=== PATIENT | male | born 1950 | race Caucasian/White ===

== ENCOUNTER 2023-06-24 20:28 | Inpatient (IN) ==
[2023-06-24] MEDS ORDERED: HEPARIN SODIUM IN D5W 25,000 UNITS/500 ML BAG IV PRN (22:43)
[2023-06-24] MEDS ORDERED: HEPARIN SODIUM INJ 5000 UNITS IVP ONE (22:45)
[2023-06-24] MEDS ORDERED: NovoLIN R (or HumuLIN R) SUBCUT PRN (22:55)
[2023-06-25] MEDS ORDERED: OMNIPAQUE 350 mg/mL 50 mL BTL 50 ML ONE (03:12)
[2023-06-25] MEDS ORDERED: OMNIPAQUE 350 mg/mL 100 mL BTL 100 ML ONE (03:12)
--- NOTE | 2023-06-25 03:52 | DR.H&P ---
H&P History & Physical for Day of: H&P Date: 06/24/23 Chief Complaint Chief Complaint: Acute pain of right foot with gangrene of the right great toe and right secomd toe Allergies Allergies Allergy/AdvReac Type Severity Reaction Status Date / Time No Known Allergies Allergy Verified 06/24/23 22:28 History of Present Illness History of Present Illness: 73 year old male with history of severed of several days of changing color of the right foot with evidence of gangrenous changes of the right great toe and second toe with pallor of the right foot. This is new. Past medical history significant for diabetes, coronary heart disease s/p post coronary artery bypass grafting in the 1960s. Also with history of cerebrovascular accident with the main sequelae of some memory loss but no obvious physical impairment Past Medical History Past Medical History: Coronary Artery Disease, CVA, Diabetes, Dyslipidemia and H ypertension Past Surgical History Surgical History: CABG/Valve Surgery and Other Social History Does patient currently use any type of tobacco product: No Have you used tobacco products in the last 12 months: No Type of Tobacco Use: None Does any household member use tobacco: No Alcohol Use: None Drug Use: None Medications Home Medications: Home Medications Medication Instructions Recorded Confirmed Type amlodipine 5 mg tablet 5 mg PO QDAY 06/24/23 06/24/23 History atorvastatin 40 mg tablet 40 mg PO QHS 06/24/23 06/24/23 History mwrpxaltqk-ugwdyjelheqwh-wimbppjy 1 cap PO Q8H PRN Headache 06/24/23 06/24/23 History 50 mg-300 mg-40 mg capsule (Fioricet) clopidogrel 75 mg tablet 75 mg PO QDAY 06/24/23 06/24/23 History lisinopril 40 mg tablet 40 mg PO QDAY 06/24/23 06/24/23 History metformin 1,000 mg tablet 1,000 mg PO BIDWMEAL 06/24/23 06/24/23 History vit C 250 mg-vit E 90 mg-zinc 40 1 tab PO BID 06/24/23 06/24/23 History mg-copper 1 xt-gjafwa-lnrsar capsule (PreserVision AREDS-2) Labs Labs: labs done in [facility] WBC=10.2, Hgb=11.9,BDSR=785B, BMP WNL WITH CREATININE= 1.1 Review of Systems Constitutional: See HPI and Other (Mild memory loss ) Eyes: No Symptoms Reported ENT: No Symptoms Reported Respiratory: No Symptoms Reported Cardiovascular: No Symptoms Reported and See HPI Gastrointestinal: No Symptoms Reported Genitourinary: No Symptoms Reported Musculoskeletal: See HPI Skin: See HPI Neurological: See HPI and Confusion (Mild) Physical Exam Vital Signs: Vital Signs Temperature 99.5 F Temperature 98.2 F Pulse Rate 70 Pulse Rate 71 Pulse Rate 72 Pulse Rate 85 Respiratory Rate 25 Respiratory Rate 25 Respiratory Rate 17 Respiratory Rate 22 Blood Pressure 160/72 Blood Pressure 169/74 Blood Pressure 127/62 Blood Pressure 155/79 O2 Sat by Pulse Oximetry 97 O2 Sat by Pulse Oximetry 99 Oriented: Normal, Time, Person, Place and Other (patient confused by his past medical history. His family fills in the blanks ) Eyes: Normal Ear: Normal Nose: Normal Throat: Normal Respiratory: Clear Throughout Cardiovascular: Normal (normal cardiac exam. Healed median sternotomy, palpable femoral pulses bilaterally. Absent dorsalis pedis and posterior tibial pulses bilaterally with significant changes of the right foot with ecchymosis, early gangrene of the right great toe and second toe ) : Normal Auscultation: Bowel Sounds: Normal Palpation: Other (reducible small umbilical hernia ) Tenderness: Normal Skin: Other (normal except for right foot as noted above ) Psychiatric: Normal Mood Description: Calm Affect: Normal Speech Pattern: Clear Assessment/Plan (1) Atherosclerosis of [place] arteries of extremities with rest pain, right leg: Status: Acute Plan: patient will be placed on a Heparin drip and obtain CT angiogram. Patient will require urgent intervention tomorrow. High risk of loss of the great toe and possibly the second toe as well of the right foot. (2) Atherosclerosis of [place] arteries of extremities with rest pain, left leg: Status: Acute Plan: Patient also with probable significant arterial disease of the left leg .See above (3) Type 2 diabetes mellitus without complications: Status: Acute Plan: sliding scale insulin for now (4) Essential (primary) hypertension: Status: Acute Plan: home medications (5) Chronic ischemic heart disease, unspecified: Status: Acute Plan: stable. Will obtain EKGs. (6) History of CVA (cerebrovascular accident): Status: Acute Plan: Monitor. Will hold Plavix for now
[2023-06-25] MEDS ORDERED: DILAUDID INJ IVP PRN (03:53)
[2023-06-25] MEDS ORDERED: HIBICLENS WASH EXT ONE (04:11)
--- NOTE | 2023-06-25 04:37 | EKG ---
Test Reason : Surgery protocol Blood Pressure : */* mmHG Vent. Rate : 72 BPM Atrial Rate : 72 BPM P-R Int : 238 ms QRS Dur : 124 ms QT Int : 420 ms P-R-T Axes : 16 -89 -16 degrees QTc Int : 459 ms Sinus rhythm with 1st degree AV block Left axis deviation Right bundle branch block Inferior infarct , age undetermined Abnormal ECG No previous ECGs available Confirmed by Mike Flores ([id number]) on 06/27/2023 9:17:01 AM Referred By: Confirmed By: Mike Flores
[2023-06-25] MEDS ORDERED: HEPARIN SODIUM INJ 5000 UNITS IVP ONE (05:27)
--- NOTE | 2023-06-25 07:03 | RAD ---
EXAM:CHEST, 1 VIEWHISTORY:pre op;COMPARISON:No relevant prior studies were available at the time of interpretation.TECHNIQUE:CHEST, 1 VIEWFINDINGS:Chest:Lines and tubes: Cardiac leads overlie the chest.Mediastinum: Median sternotomy wires are present. Cardiac shadow is normal in size.Pulmonary vessels: No pulmonary vascular congestion.Lung [place]: No suspicious airspace opacity.Pleura: No effusion. No pneumothorax.Bones and soft tissues: No acute osseous or soft tissue abnormality.IMPRESSION:1. No acute cardiopulmonary abnormalityTHIS IS AN ELECTRONICALLY VERIFIED FINAL REPORT06/25/2023 6:59 AM - Electronically signed by Robbie Hines MD
--- NOTE | 2023-06-25 07:34 | NOTE.SOAP ---
Soap Note Note for Day of Date of Exam: 06/25/23 Subjective Data Subjective Data: 73M with a history of DM notes a painful right foot that developped discoloration 2 weeks ago after a trip and fall. He feels fine in his other foot and only experiences mild pain due to neuropathy. He states he has never seen a vascular doctor in the past. He was recommended to go to the emergency room yesterday to be worked up further for intervention. Denies any constitutional symptoms at this time Objective Data Objective Data: Dry gangrenous changes primarily to the hallux and as well as patches on his lesser digits of his right foot. Blue and black color changes to the skin. No open wounds, crepitus or purulence noted. Non palpable pulses. Diminished protective and epicritic sensation. The foot is cold to touch. Assessment Assessment: Critical limb ischemic, RLE PAD DM with neuropathy Plan Plan: Patient seen bedside, discussed plan at this time will be treating patient conservatively and he can follow up in the office once he completes his vascular intervention with Dr. Canseco. I recommend painting the toes with betadine to keep dry and prevent from getting wet. Patient is at risk of amputation, pending recs from vascular. At this time, podiatry is signing off, please have patient follow up in Dr. Boucher's office once discharged./
[2023-06-25 08:32] LABS: BASOPHILS % (AUTO) 0.2 % (0.2-1.0); EOSINOPHILS % (AUTO) 0.4 % (0.9-2.9); HEMOGLOBIN 10.9 g/dL (13.5-18.0); LYMPHOCYTES # (AUTO) 1.6 X10^3/uL (1.3-2.9); LYMPHOCYTES % (AUTO) 20.1 % (21.0-51.0); MEAN CORPUSCULAR HEMOGLOBIN 29.1 pg (27.0-34.0); MEAN CORPUSCULAR HGB CONC 33.1 g/dL (33.0-35.0); MEAN CORPUSCULAR VOLUME 87.8 fL (80.0-100.0); MEAN PLATELET VOLUME 10.5 fL (7.4-11.0); MONOCYTES # (AUTO) 0.5 x10^3/uL (0.3-0.8); MONOCYTES % (AUTO) 6.3 % (0.0-13.0); NEUTROPHILS # (AUTO) 5.6 x10^3/uL (2.2-4.8); PLATELET COUNT 188 X10^3/uL (150.0-450.0); RED BLOOD COUNT 3.76 X10^6/uL (4.7-6.0); RED CELL DISTRIBUTION WIDTH 14.6 % (11.6-16.5); WHITE BLOOD COUNT 7.7 X10^3/uL (3.6-10.0)
[2023-06-25 08:40] LABS: ALANINE AMINOTRANSFERASE 16 Units/L (12-78); ALBUMIN 2.5 g/dL (3.4-5.0); ALKALINE PHOSPHATASE 100 Units/L (46-116); ASPARTATE AMINO TRANSFERASE 19 Units/L (15-37); BLOOD UREA NITROGEN 16 mg/dL (7-18); CALCIUM 8.5 mg/dL (8.5-10.1); CARBON DIOXIDE 24.1 mmol/L (21-32); CHLORIDE 100 mmol/L (98-107); COR CA(FOR HYPOALB) 9.7 mg/dL (8.5-10.1); COR NA(FOR HYPERGLY) 134 mmol/L (136-145); CREATININE 0.88 mg/dL (0.70-1.30); GLUCOSE 122 mg/dL (65-99); POTASSIUM 3.7 mmol/L (3.5-5.1); SODIUM 133 mmol/L (136-145); TOTAL PROTEIN 6.9 g/dL (6.4-8.2); eGFR NON BLACK RACES > 60 (>60)
[2023-06-25 09:00] LABS: ANISOCYTOSIS 1+; PLATELET MORPHOLOGY COMMENT NORMAL (NORMAL)
--- NOTE | 2023-06-25 09:24 | CT ---
EXAM:CTA AORTA WITH RUNOFFHISTORY:Right lower extremity ischemia;COMPARISON:NoneTECHNIQUE:Multip le CT axial images of the abdomen pelvis and lower extremity runoff were obtained before and after using IV contrast. 3D reconstructions utilizing axial MIPS imaging was performed and reviewed. Dose reduction techniques including Automated Exposure Control (AEC) and adjustment of mA and kV were utilized.Stenoses are measured using NASCET criteria.FINDINGS:Without contrast: Atherosclerotic calcification is present in the coronary arteries, aorta, and major arterial branches. Right hip prosthesis is noted.With contrast: The aorta has a normal caliber with no aneurysm, dissection, or stenosis. All 3 mesenteric vessels are patent. There are 2 patent arteries to the right kidney and 1 to the left.Common iliac and external iliac arteries are patent. Both internal iliac arteries are patent.Right lower extremity: Moderate plaque disease is noted in the common femoral artery without significant stenosis. There is also a mild stenosis at the adductor canal segment. Otherwise femoropopliteal artery is patent to the infrarenal segment. Distal popliteal artery is occluded. The occluded length is short-segment measuring 15 mm. The reconstituted popliteal artery is small but continues as a peroneal artery which extends into the foot. Posterior tibial artery is patent initially but has severe disease and multifocal occlusions. There are segmental areas of reconstitution of the anterior tibial artery but this is mostly occluded.Left lower extremity: Mild diffuse disease seen in the femoropopliteal artery. The only continuous vessel to the foot is the posterior tibial artery but this has diffuse moderate disease. Anterior tibial artery is occluded in the proximal calf and is never reconstituted. Peroneal artery is occluded in the proximal calf and is never reconstituted.Body: There is no biliary dilatation. The gallbladder has no inflammation around it. No hydronephrosis. No bowel obstruction.IMPRESSION:1. Short-segment occlusion of the distal right popliteal artery2. Single-vessel runoff to the right foot3. Single-vessel runoff to the left footTHIS IS AN ELECTRONICALLY VERIFIED FINAL REPORT06/25/2023 9:21 AM - Electronically signed by Pritesh Camacho MD
[2023-06-25] MEDS: NORVASC TAB 5 MG PO SCH (09:30)
[2023-06-25] MEDS: ZESTRIL TAB 40 MG PO SCH (09:30)
[2023-06-25] MEDS: LIPITOR TAB 40 MG PO SCH (09:30)
--- NOTE | 2023-06-25 10:32 | NOTE.SOAP ---
Soap Note Note for Day of Date of Exam: 06/25/23 Subjective Data Subjective Data: Patient did well last night on Heparin drip. CT angiogram obtained showing complete occlusion of the right popliteal artery over A short segment with diseased right runoff vessels of the anterior tibial and posteriolr tibial arteries the right foot. Objective Data Pulse Rate: 74 Respiratory Rate: 30 Blood Pressure: 135/64 O2 Sat by Pulse Oximetry: 93 Objective Data: Oxygen saturation is on room air. Complete occlusion of the right poplteal arteries with severe disease of the right AT and Assessment Assessment: Limb threatening ischemia of the right foot with total popliteal occlusion. Plan Plan: Aortogram . Ahterctomy and probable drug-coated balloon angioplasty of the left poplitaeal occlusion. Probably angioplasty of the runoff vessels. Risk and benefits have been described to the patient and he agtrees to proceed.
[2023-06-25] MEDS: ZOSYN VIAL 3.375 GRAMS 3.375 G in NS 100 ML IV 100 ML IV SCH ×3 (11:33→22:40)
[2023-06-25] MEDS ORDERED: NS 1,000 ML IV 1,000 ML ONE (12:02)
[2023-06-25] MEDS ORDERED: HEPARIN SODIUM INJ 5000 UNITS ONE (12:28)
[2023-06-25] MEDS ORDERED: DIPRIVAN VIAL 40 ML ONE (12:28)
[2023-06-25] MEDS ORDERED: ZOFRAN INJ 4 MG VIAL ONE (12:29)
[2023-06-25] MEDS ORDERED: KETAMINE HCL ONE ×2 (12:29→12:31)
[2023-06-25] MEDS ORDERED: PEPCID 20 MG VIAL ONE (12:29)
[2023-06-25] MEDS ORDERED: VERSED ONE (12:32)
[2023-06-25] MEDS ORDERED: FENTANYL VIAL INJ 100 mcg ONE (12:32)
[2023-06-25] MEDS ORDERED: MARCAINE 0.5% ONE (12:47)
[2023-06-25] MEDS ORDERED: HEPARIN SODIUM IN D5W 75,000 UNITS/1,500 ML BAG ONE (12:48)
[2023-06-25] MEDS ORDERED: VISIPAQUE 100 ML ONE (13:09)
[2023-06-25] MEDS ORDERED: NEO-SYNEPHRINE INJ ONE (13:15)
[2023-06-25] MEDS ORDERED: NS 500 ML IV 500 ML IV ONE (13:37)
--- NOTE | 2023-06-25 14:39 | OR.IMMED ---
IMMEDIATE POST-OP NOTE Immediate Post-Op Note Date of surgery/procedure: 06/25/23 Pre-Op Diagnosis: limb threatening ischemia right foot Post-Op Diagnosis: same Procedure: Aortogram ,arteriogram right leg, atherectomy and balloon angioplasty right posterior tibial artery and tibioperoneal trunk occlusion, athjerectomy and drug coated balloon angioplasty right popliteal artery occlusion, atherectomy and drug-coated balloon angioplasty severe stenosis right superficial femoral artery mid portion . Description of Procedure: see dictation Surgeon/Tactical Intelligence Officer: Ajith Findings: short segment complete occlusion of the right popliteal artery just above the knee, occlusion of the right tibial peroneal trunk, occlusion of the proximal right posterior tibial artery with good flow lisa the foot and collateral flow. Anterior tibial artery never visualized . Peroneal artery markedly disease and ends in the distal calf. Estimated Blood Loss: < 100 cc Complications: none Progress Notes: patient to return to the ICU. Will discontinue the Heparin drip. Begin Xarelto and aspirin. Probably discharge home tomorrow on Xarelto, aspirin, and po antibiotics s and see in follow up next week. May still lose the right great toe in the future.
[2023-06-25] MEDS ORDERED: SNACK - Diabetic Appropriate PO SCH (20:00)
[2023-06-26] MEDS: ZOSYN VIAL 3.375 GRAMS 3.375 G in NS 100 ML IV 100 ML IV SCH (05:02)
[2023-06-26 05:22] LABS: BASOPHILS % (AUTO) 0.1 % (0.2-1.0); EOSINOPHILS % (AUTO) 0.4 % (0.9-2.9); HEMOGLOBIN 10.6 g/dL (13.5-18.0); LYMPHOCYTES # (AUTO) 0.9 X10^3/uL (1.3-2.9); LYMPHOCYTES % (AUTO) 14.1 % (21.0-51.0); MEAN CORPUSCULAR HGB CONC 33.1 g/dL (33.0-35.0); MEAN CORPUSCULAR VOLUME 87.6 fL (80.0-100.0); MEAN PLATELET VOLUME 10.1 fL (7.4-11.0); MONOCYTES # (AUTO) 0.5 x10^3/uL (0.3-0.8); MONOCYTES % (AUTO) 8.1 % (0.0-13.0); NEUTROPHILS # (AUTO) 5.2 x10^3/uL (2.2-4.8); NEUTROPHILS % (AUTO) 77.3 % (42.0-75.0); PLATELET COUNT 189 X10^3/uL (150.0-450.0); RED BLOOD COUNT 3.66 X10^6/uL (4.7-6.0); RED CELL DISTRIBUTION WIDTH 14.6 % (11.6-16.5); WHITE BLOOD COUNT 6.7 X10^3/uL (3.6-10.0)
[2023-06-26 05:31] LABS: BLOOD UREA NITROGEN 15 mg/dL (7-18); CALCIUM 8.5 mg/dL (8.5-10.1); CARBON DIOXIDE 24.6 mmol/L (21-32); CHLORIDE 102 mmol/L (98-107); COR NA(FOR HYPERGLY) 137 mmol/L (136-145); CREATININE 0.98 mg/dL (0.70-1.30); GLUCOSE 130 mg/dL (65-99); POTASSIUM 3.9 mmol/L (3.5-5.1); SODIUM 136 mmol/L (136-145); eGFR NON BLACK RACES > 60 (>60)
[2023-06-26 08:02] VITALS: BMI 28.5
[2023-06-26] MEDS: LIPITOR TAB 40 MG PO SCH (08:24)
[2023-06-26] MEDS: NORVASC TAB 5 MG PO SCH (08:24)
[2023-06-26] MEDS: ZESTRIL TAB 40 MG PO SCH (08:24)
[2023-06-26 08:40] VITALS: TEMP 97.9
[2023-06-26 12:21] VITALS: BP 132/61; PULSE 73; RESP 18; O2SAT 98
--- NOTE | 2023-06-26 13:45 | W.DIS.FURT ---
Summary of Discharge Discharge Summary of Date Date of Exam: 06/26/23 Admission Date Date of Admission: 06/24/23 Admission Diagnosis Hospital Course: This is a 73 year old male with acute onset of severe pain and tissue loss of the right foot including the right great toe with dry gangrenous changes as well as ecchymosis and skin loss over the dorsum of the right foot. Past history significant for coronary artery disease s/p CABG and history of cerebrovascular accident with no resisual neurological loss. Patient was admitted and placed on a Heparin drip . CT angiogram showed complete occlusion of the right popliteal artery and the right tibial peroneal trunk. On table Arteriogram confirmed the complete occlusion of the right popliteal artery and right tibial peroneal trunk . There also appeared to be mild to moderate disease of the distal right superficial femoral artery as well as significant collateral flow of the right foot with the primary runoff vessel being the posterior tibial artery. The next day the patient was taken to the operating Suite where he underwent atherectomy and drug coated balloon angioplasty of the right popliteal artery , distal right superficial femoral tibial peroneal trunk as well as angioplasty of the posterior tibial artery which was the main runoff to the foot . At the completion of the procedure the foot was nice and warm with an excellent doppler signal in the right posterior tibial artery . Patient will be discharged home at this time on his usual home medications with the addition of Xarelto , 2.5 mg BID .aspirin 81 mg daily , Bactrim DS 1 po BID and Percocet 5m, 1 po 6 hr PRN pain. He will follow up with me next week . We will allow demarcation of the right foot to determine what, if anything , needs amputation. Vital Signs: Vital Signs (72 hours) 06/25/23 10:32 06/24/23 21:00 06/24/23 21:00 Temperature 98.2 F Pulse Rate 74 85 Respiratory Rate 30 H 22 Blood Pressure 135/64 155/79 O2 Sat by Pulse Oximetry 93 L Oxygen Delivery Method Room Air Room Air Oxygen Flow Rate FIO2% 06/24/23 22:00 06/24/23 22:00 06/24/23 23:03 Temperature Pulse Rate 72 Respiratory Rate 17 Blood Pressure 127/62 169/74 O2 Sat by Pulse Oximetry Oxygen Delivery Method Oxygen Flow Rate FIO2% 06/24/23 23:03 06/25/23 00:00 06/25/23 00:00 Temperature 99.5 F Pulse Rate 71 70 Respiratory Rate 25 H 25 H Blood Pressure 160/72 O2 Sat by Pulse Oximetry 99 97 Oxygen Delivery Method Oxygen Flow Rate FIO2% 06/25/23 01:00 06/25/23 01:00 06/25/23 02:00 Temperature Pulse Rate 68 70 Respiratory Rate 27 H 27 H Blood Pressure 157/73 O2 Sat by Pulse Oximetry 92 L 98 Oxygen Delivery Method Oxygen Flow Rate FIO2% 06/25/23 02:00 06/25/23 03:00 06/25/23 03:00 Temperature Pulse Rate 72 Respiratory Rate 25 H Blood Pressure 168/77 154/72 O2 Sat by Pulse Oximetry 97 Oxygen Delivery Method Oxygen Flow Rate FIO2% 06/25/23 04:00 06/25/23 04:00 06/25/23 05:00 Temperature 98.8 F Pulse Rate 73 Respiratory Rate 28 H Blood Pressure 151/70 161/73 O2 Sat by Pulse Oximetry 95 Oxygen Delivery Method Oxygen Flow Rate FIO2% 06/25/23 05:00 06/25/23 06:00 06/25/23 06:00 Temperature Pulse Rate 74 74 Respiratory Rate 28 H 30 H Blood Pressure 135/64 O2 Sat by Pulse Oximetry 96 93 L Oxygen Delivery Method Oxygen Flow Rate FIO2% 06/25/23 07:00 06/25/23 07:00 06/25/23 07:00 Temperature Pulse Rate 71 Respiratory Rate 20 Blood Pressure 154/73 O2 Sat by Pulse Oximetry 91 L Oxygen Delivery Method Room Air Oxygen Flow Rate FIO2% 06/25/23 07:39 06/25/23 07:39 06/25/23 08:00 Temperature Pulse Rate 74 Respiratory Rate 20 Blood Pressure 174/77 163/72 O2 Sat by Pulse Oximetry 100 Oxygen Delivery Method Oxygen Flow Rate FIO2% 06/25/23 08:00 06/25/23 09:00 06/25/23 09:00 Temperature 98.0 F Pulse Rate 72 84 Respiratory Rate 20 19 Blood Pressure 141/101 O2 Sat by Pulse Oximetry 98 100 Oxygen Delivery Method Oxygen Flow Rate FIO2% 06/25/23 09:30 06/25/23 09:30 06/25/23 10:00 Temperature Pulse Rate 81 72 Respiratory Rate 18 Blood Pressure 139/70 O2 Sat by Pulse Oximetry 100 100 Oxygen Delivery Method Oxygen Flow Rate FIO2% 06/25/23 10:00 06/25/23 10:03 06/25/23 10:03 Temperature Pulse Rate 70 Respiratory Rate 17 Blood Pressure 180/80 147/72 O2 Sat by Pulse Oximetry 97 Oxygen Delivery Method Oxygen Flow Rate FIO2% 06/25/23 11:00 06/25/23 11:01 06/25/23 11:01 Temperature Pulse Rate 72 70 Respiratory Rate 19 17 Blood Pressure 184/77 O2 Sat by Pulse Oximetry 98 97 Oxygen Delivery Method Oxygen Flow Rate FIO2% 06/25/23 12:09 06/25/23 14:34 06/25/23 14:36 Temperature Pulse Rate 77 49 L Respiratory Rate 20 Blood Pressure 141/84 121/60 O2 Sat by Pulse Oximetry 98 Oxygen Delivery Method Room Air Oxygen Flow Rate FIO2% 06/25/23 14:36 06/25/23 14:45 06/25/23 14:45 Temperature Pulse Rate 49 L 52 L Respiratory Rate 21 Blood Pressure 88/49 O2 Sat by Pulse Oximetry 99 98 Oxygen Delivery Method Oxygen Flow Rate FIO2% 06/25/23 14:50 06/25/23 14:50 06/25/23 14:51 Temperature Pulse Rate 53 L 57 L Respiratory Rate 18 18 Blood Pressure 90/51 O2 Sat by Pulse Oximetry 99 98 Oxygen Delivery Method Oxygen Flow Rate FIO2% 06/25/23 14:51 06/25/23 14:51 06/25/23 15:00 Temperature Pulse Rate Respiratory Rate Blood Pressure 97/55 97/55 111/59 O2 Sat by Pulse Oximetry Oxygen Delivery Method Oxygen Flow Rate FIO2% 06/25/23 15:00 06/25/23 15:00 06/25/23 15:00 Temperature Pulse Rate 63 63 Respiratory Rate 20 19 Blood Pressure 111/59 O2 Sat by Pulse Oximetry 97 97 Oxygen Delivery Method Oxygen Flow Rate FIO2% 06/25/23 15:15 06/25/23 15:15 06/25/23 15:30 Temperature Pulse Rate 63 64 Respiratory Rate 20 22 Blood Pressure 113/64 O2 Sat by Pulse Oximetry 100 99 Oxygen Delivery Method Oxygen Flow Rate FIO2% 06/25/23 15:30 06/25/23 15:45 06/25/23 15:45 Temperature Pulse Rate 66 Respiratory Rate 22 Blood Pressure 123/60 116/62 O2 Sat by Pulse Oximetry 100 Oxygen Delivery Method Oxygen Flow Rate FIO2% 06/25/23 16:00 06/25/23 16:00 06/25/23 16:15 Temperature 97.9 F Pulse Rate 66 Respiratory Rate 18 Blood Pressure 118/65 139/67 O2 Sat by Pulse Oximetry 100 Oxygen Delivery Method Oxygen Flow Rate FIO2% 06/25/23 16:15 06/25/23 16:30 06/25/23 16:30 Temperature Pulse Rate 68 65 Respiratory Rate 18 24 Blood Pressure 123/59 O2 Sat by Pulse Oximetry 100 100 Oxygen Delivery Method Oxygen Flow Rate FIO2% 06/25/23 16:46 06/25/23 16:46 06/25/23 17:00 Temperature Pulse Rate 69 Respiratory Rate 20 Blood Pressure 146/66 131/60 O2 Sat by Pulse Oximetry 100 Oxygen Delivery Method Oxygen Flow Rate FIO2% 06/25/23 17:00 06/25/23 17:00 06/25/23 17:19 Temperature Pulse Rate 67 Respiratory Rate 18 Blood Pressure 131/60 119/57 O2 Sat by Pulse Oximetry 100 Oxygen Delivery Method Oxygen Flow Rate FIO2% 06/25/23 17:19 06/25/23 17:30 06/25/23 17:30 Temperature Pulse Rate 66 82 Respiratory Rate 19 17 Blood Pressure 115/55 O2 Sat by Pulse Oximetry 100 100 Oxygen Delivery Method Oxygen Flow Rate FIO2% 06/25/23 17:45 06/25/23 17:45 06/25/23 18:00 Temperature Pulse Rate 71 Respiratory Rate 22 Blood Pressure 116/59 113/58 O2 Sat by Pulse Oximetry 99 Oxygen Delivery Method Oxygen Flow Rate FIO2% 06/25/23 18:00 06/25/23 19:16 06/25/23 19:00 Temperature Pulse Rate 66 Respiratory Rate 21 Blood Pressure O2 Sat by Pulse Oximetry 98 Oxygen Delivery Method Nasal Cannula Room Air Oxygen Flow Rate 2 FIO2% 28 06/25/23 19:00 06/25/23 19:00 06/25/23 20:23 Temperature 99.2 F Pulse Rate 82 Respiratory Rate 35 H Blood Pressure 109/63 102/61 O2 Sat by Pulse Oximetry 97 Oxygen Delivery Method Oxygen Flow Rate FIO2% 06/25/23 20:23 06/25/23 21:00 06/25/23 21:00 Temperature Pulse Rate 83 79 Respiratory Rate 30 H 27 H Blood Pressure 119/59 O2 Sat by Pulse Oximetry 100 91 L Oxygen Delivery Method Oxygen Flow Rate FIO2% 06/25/23 22:00 06/25/23 22:00 06/25/23 23:00 Temperature Pulse Rate 78 80 Respiratory Rate 29 H 28 H Blood Pressure 137/63 O2 Sat by Pulse Oximetry 93 L 96 Oxygen Delivery Method Oxygen Flow Rate FIO2% 06/25/23 23:03 06/26/23 00:00 06/26/23 00:00 Temperature 97.9 F Pulse Rate 79 Respiratory Rate 27 H Blood Pressure 135/63 140/76 O2 Sat by Pulse Oximetry 100 Oxygen Delivery Method Oxygen Flow Rate FIO2% 06/26/23 01:00 06/26/23 01:00 06/26/23 02:00 Temperature Pulse Rate 76 Respiratory Rate 28 H Blood Pressure 145/73 134/63 O2 Sat by Pulse Oximetry 100 Oxygen Delivery Method Oxygen Flow Rate FIO2% 06/26/23 02:00 06/26/23 03:00 06/26/23 03:00 Temperature Pulse Rate 74 74 Respiratory Rate 28 H 30 H Blood Pressure 136/62 O2 Sat by Pulse Oximetry 97 92 L Oxygen Delivery Method Oxygen Flow Rate FIO2% 06/26/23 04:00 06/26/23 04:01 06/26/23 04:01 Temperature 99.0 F Pulse Rate 72 Respiratory Rate 27 H Blood Pressure 150/67 150/67 O2 Sat by Pulse Oximetry 99 Oxygen Delivery Method Oxygen Flow Rate FIO2% 06/26/23 04:01 06/26/23 05:00 06/26/23 05:00 Temperature Pulse Rate 72 70 Respiratory Rate 28 H 29 H Blood Pressure 137/62 O2 Sat by Pulse Oximetry 100 98 Oxygen Delivery Method Oxygen Flow Rate FIO2% 06/26/23 06:00 06/26/23 06:00 06/26/23 07:00 Temperature Pulse Rate 71 Respiratory Rate 26 H Blood Pressure 154/71 143/68 O2 Sat by Pulse Oximetry 99 Oxygen Delivery Method Oxygen Flow Rate FIO2% 06/26/23 07:00 06/26/23 07:54 06/26/23 08:37 Temperature 97.9 F Pulse Rate 68 89 Respiratory Rate 19 Blood Pressure 107/58 O2 Sat by Pulse Oximetry 97 96 Oxygen Delivery Method Oxygen Flow Rate FIO2% 06/26/23 07:00 06/26/23 08:37 06/26/23 08:37 Temperature Pulse Rate Respiratory Rate Blood Pressure 107/58 107/58 O2 Sat by Pulse Oximetry Oxygen Delivery Method Room Air Oxygen Flow Rate FIO2% 06/26/23 08:27 06/26/23 12:00 Temperature 97.9 F Pulse Rate 73 Respiratory Rate 18 Blood Pressure 132/61 O2 Sat by Pulse Oximetry 98 Oxygen Delivery Method Nasal Cannula Room Air Oxygen Flow Rate 2 FIO2% 28 Labs: Laboratory Last Values WBC 6.7 X10^3/uL (3.6-10.0) 06/26/23 04:16 RBC 3.66 X10^6/uL (4.7-6.0) L 06/26/23 04:16 Hgb 10.6 g/dL (13.5-18.0) L 06/26/23 04:16 Hct 32.0 % (42.0-54.0) L 06/26/23 04:16 MCV 87.6 fL (80.0-100.0) 06/26/23 04:16 MCH 29.0 pg (27.0-34.0) 06/26/23 04:16 MCHC 33.1 g/dL (33.0-35.0) 06/26/23 04:16 RDW 14.6 % (11.6-16.5) 06/26/23 04:16 Plt Count 189 X10^3/uL (150.0-450.0) 06/26/23 04:16 Plt Count Comment Adequate (ADEQUATE) 06/25/23 05:05 MPV 10.1 fL (7.4-11.0) 06/26/23 04:16 Neut % (Auto) 77.3 % (42.0-75.0) H 06/26/23 04:16 Lymph % (Auto) 14.1 % (21.0-51.0) L 06/26/23 04:16 [place] % (Auto) 8.1 % (0.0-13.0) 06/26/23 04:16 Eos % (Auto) 0.4 % (0.9-2.9) L 06/26/23 04:16 Baso % (Auto) 0.1 % (0.2-1.0) L 06/26/23 04:16 Neut # (Auto) 5.2 x10^3/uL (2.2-4.8) H 06/26/23 04:16 Lymph # (Auto) 0.9 X10^3/uL (1.3-2.9) L 06/26/23 04:16 [place] # (Auto) 0.5 x10^3/uL (0.3-0.8) 06/26/23 04:16 Eos # (Auto) 0.0 x10^3/uL (0.0-0.2) 06/26/23 04:16 Baso # (Auto) 0.0 X10^3/uL (0.0-0.1) 06/26/23 04:16 Absolute Nucleated RBC 0.0 /100WBC 06/26/23 04:16 Plt Morphology Comment Normal (NORMAL) 06/25/23 05:05 RBC Morphology Abnormal (NORMAL) 06/25/23 05:05 Anisocytosis 1+ A 06/25/23 05:05 APTT 41.4 SECONDS (22.9-36.5) H 06/25/23 05:05 PTT Comment - 06/25/23 05:05 Sodium 136 mmol/L (136-145) 06/26/23 04:16 Corrected Sodium 137 mmol/L (136-145) 06/26/23 04:16 Potassium 3.9 mmol/L (3.5-5.1) 06/26/23 04:16 Chloride 102 mmol/L (98-107) 06/26/23 04:16 Carbon Dioxide 24.6 mmol/L (21-32) 06/26/23 04:16 BUN 15 mg/dL (7-18) 06/26/23 04:16 Creatinine 0.98 mg/dL (0.70-1.30) 06/26/23 04:16 Est GFR (MDRD) Af Amer > 60 (>60) 06/26/23 04:16 Est GFR (MDRD) Non-Af > 60 (>60) 06/26/23 04:16 Glucose 130 mg/dL (65-99) H 06/26/23 04:16 POC Glucose (mg/dL) 186 mg/dL (65-99) H 06/26/23 10:58 Calcium 8.5 mg/dL (8.5-10.1) 06/26/23 04:16 Corrected Calcium 9.7 mg/dL (8.5-10.1) 06/25/23 05:05 Total Bilirubin 0.30 mg/dL (0.2-1.0) 06/25/23 05:05 AST 19 Units/L (15-37) 06/25/23 05:05 ALT 16 Units/L (12-78) 06/25/23 05:05 Alkaline Phosphatase 100 Units/L (46-116) 06/25/23 05:05 Total Protein 6.9 g/dL (6.4-8.2) 06/25/23 05:05 Albumin 2.5 g/dL (3.4-5.0) L 06/25/23 05:05 Globulin 4.4 g/dL (2.5-4.5) 06/25/23 05:05 Albumin/Globulin Ratio 0.6 Ratio (1.1-2.1) L 06/25/23 05:05 Reason For Visit: RIGHT LOWER EXTREMITY ISCHEMIA Discharge Date Discharge Date: 06/26/23 Discharge Diagnosis All Active Problems (Updated 06/25/23 @ 03:50 by Chapito Canseco) History of CVA (cerebrovascular accident) (Acute) Chronic ischemic heart disease, unspecified (Acute) Essential (primary) hypertension (Acute) Type 2 diabetes mellitus without complications (Acute) Atherosclerosis of [place] arteries of extremities with rest pain, left leg (Acute) Atherosclerosis of [place] arteries of extremities with rest pain, right leg (Acute) Plan of Treatment: Continue with present treatment and follow up plan. Pt is to keep follow up appointment as instructed and take medications as ordered. Discharge Medications Discharge Medications: No Known Allergies Allergy (Verified 06/24/23 22:28) CONTINUE taking the following medications amlodipine 5 mg tablet 5 mg PO QDAY 06/24/23 [History] atorvastatin 40 mg tablet 40 mg PO QHS 06/24/23 [History] nvnzlmxpoi-qdutkxduhzvgu-gejkqyiu 50 mg-300 mg-40 mg capsule (Fioricet) 1 cap PO Q8H PRN Headache 06/24/23 [History] clopidogrel 75 mg tablet 75 mg PO QDAY 06/24/23 [History] lisinopril 40 mg tablet 40 mg PO QDAY 06/24/23 [History] metformin 1,000 mg tablet 1,000 mg PO BIDWMEAL 06/24/23 [History] vit C 250 mg-vit E 90 mg-zinc 40 mg-copper 1 or-knddtr-hjayzr capsule (PreserVision AREDS-2) 1 tab PO BID 06/24/23 [History] NEW Xarelto 2.5 , 1 po BID, aspirin 81 mg po daily, Bactrim DS , 1 po BID x 10 days , Percocet 5 mg 1 po q 6 Hr PRN pain, # 30 Discharge Disposition Assessment: see hospital coiurse Discharge Plan Discharge Plan Hospital Course: This is a 73 year old male with acute onset of severe pain and tissue loss of the right foot including the right great toe with dry gangrenous changes as well as ecchymosis and skin loss over the dorsum of the right foot. Past history significant for coronary artery disease s/p CABG and history of cerebrovascular accident with no resisual neurological loss. Patient was admitted and placed on a Heparin drip . CT angiogram showed complete occlusion of the right popliteal artery and the right tibial peroneal trunk. On table Arteriogram confirmed the complete occlusion of the right popliteal artery and right tibial peroneal trunk . There also appeared to be mild to moderate disease of the distal right superficial femoral artery as well as significant collateral flow of the right foot with the primary runoff vessel being the posterior tibial artery. The next day the patient was taken to the operating Suite where he underwent atherectomy and drug coated balloon angioplasty of the right popliteal artery , distal right superficial femoral tibial peroneal trunk as well as angioplasty of the posterior tibial artery which was the main runoff to the foot . At the completion of the procedure the foot was nice and warm with an excellent doppler signal in the right posterior tibial artery . Patient will be discharged home at this time on his usual home medications with the addition of Xarelto , 2.5 mg BID .aspirin 81 mg daily , Bactrim DS 1 po BID and Percocet 5m, 1 po 6 hr PRN pain. He will follow up with me next week . We will allow demarcation of the right foot to determine what, if anything , needs amputation. Patient Disposition: 06 HOME HEALTH SERVICE Condition: Stable Health Concerns: Post Hospitalization: new medications and changes needed to prevent readmission or further decline. Pt educated and given instructions on all concerns. Care Plan Goals: Problem: Pain/Alteration in Comfort Goal: Improve/ Resolve Pain; Achieve Pain Tolerance Instructions: Take pain medications as prescribed. Contact your primary care provider if your pain is unrelieved or worsens. Follow up with primary care provider as directed. Plan of Treatment: Continue with present treatment and follow up plan. Pt is to keep follow up appointment as instructed and take medications as ordered. Assessment: see hospital coiurse Prescription drug monitoring program results: PDMP reviewed and no concerns identified Prescriptions: New Xarelto 2.5 mg tablet 2.5 mg PO BID Qty: 180 0RF sulfamethoxazole-trimethoprim [Bactrim DS] 800-160 mg tablet 1 tab PO BID Qty: 20 0RF oxycodone-acetaminophen [Percocet] 5-325 mg tablet 1 tab PO Q6H MDD 4 PRNQty: 30 0RF aspirin 81 mg tablet,chewable 81 mg PO QDAY Qty: 120 0RF Continued atorvastatin 40 mg Tablet 40 mg PO QHS clopidogrel 75 mg Tablet 75 mg PO QDAY amlodipine 5 mg Tablet 5 mg PO QDAY metformin 1,000 mg Tablet 1,000 mg PO BIDWMEAL lisinopril 40 mg Tablet 40 mg PO QDAY osdgrsgatk-kfpgcdepiduhs-tqqo [Fioricet] 50-300-40 mg Capsule 1 cap PO Q8H PRN (Reason: Headache) PreserVision AREDS-2 250-90-40-1 mg Capsule 1 tab PO BID Follow ups/Referrals Follow ups/Referrals: JEFF IRVIN [STAFF PHYSICIAN] - 1 WEEK Chapito Canseco [Primary Care Provider] - 07/15/23 9:00 am Instructions Instructions: Endovascular Therapy for Peripheral Vascular Disease, Care After Stand Alone Forms: Excuse From Work or School, Post Hospital Follow Up Care
--- NOTE | 2023-07-01 13:22 | DR.OPNOTE ---
OP NOTE Pre-Op Diagnosis: critical ischemia right leg Post-Op Diagnosis: critical ischemia right leg. Procedure Date Date Of Procedure: 06/25/23 Procedure: PROCEDURE: DIAGNOSTIC AORTOGRAM, DIAGNOSTIC ARTERIOGRAM RIGHT LEG , ATHERECTOMY AND DRUG COATED BALLOON ANGIOPLASTY RIGHT POPLITEAL ARTERY OCCLUSION AND MODERATE DISEASE OF THE DISTAL RIGHT SUPERFICIAL FEMORAL ARTERY, ATHERECTOMY AND DRUG COATED BALLOON ANGIOPLASTY RIGHT TIBIAL PERONEAL TRUNK, ATHERECTOMY AND ANGIOPLASTY RIGHT POSTERIOR TIBIAL ARTERY NARRATIVE : The patient was taken to the operative suite and placed in the supine position. The left groin and entire right leg were prepped and draped in sterile fashion. The patient was given intravenous sedation supervised by myself. Time out for the procedure obtained. Ultrasound used to identify the left femoral artery and the skin overlying it infiltrated with 0.5% Marcaine. Ultrasound then used to guide puncture of the left femoral artery and a 0.012 inch guide wire was placed. Incision made over the guide wire at the skin edge with a # 11 knife blade and a micro sheath placed over the guide wire into the left femoral artery The small guidewire exchanged for a 0.035 inch Advantage glide wire and the micro sheath exchanged for a 5 Fr vascular sheath Patient given 5000 units of intravenous heparin. Omni catheter was placed over the guide wire into the aorta and diagnostic aortogram carried out with the power injector showing normal aorta and iliac arteries . Omni catheter was used to steer the guide wire down the right common iliac artery to the distal right external iliac artery . Omni catheter was exchanged for a [place] catheter and sequential arteriograms carried out of the right lower extremity showing moderate disease of the distal right superficial femoral artery, complete short segment occlusion of the right popliteal artery, complete occlusion of the right tibial peroneal trunk with occluded proximal right posterior tibial artery, right anterior tibial artery never visualized and diseased right peroneal artery ending in the proximal ankle. The 5 Fr sheath in the left groin then exchanged for a 7 Fr [place] sheath which was parked in the proximal right superficial femoral artery. [place] catheter and the guide wire were used to traverse the arteries of the right leg ultimately ending in theright posterior tibial artery across the proximal occlusion into the distal artery. This was selective catheterization. 0.035 inch wire removed and exchanged for a 0.014 inch wire. Over this wire we placed the [place] atherectomy device and performed atherectomy of the distal right suoerficial femoral artery , completely occluded right popliteal artery, completely occluded right tibial peroneal trunk and the proximal right posterior tibial artery . At this point we performed angioplasty of the right posterior tibial artery usung a 3x220 mm [place] [employer] [place] balloon, drug coated balloon angioplasty of the right tibial peroneal trunk using a [place] [employer] 4x 150 mm [place] balloon and drug coated balloon angioplasty of the right popliteal and distal right superficial femoral artery using a [place] 6mmx 200 mm balloon .The drug coated balloons were each inflated for three minutes .At the completion of this a follow up arteriogram showed excellent results all the way to the right ankle. All wires and devices removed. The 7 Fr sheath was pulled back into the aorta and a 0.035 inch wire placed. The destination sheath exchanged for an Angioseal device used to close the puncture of the left femoral artery. .Dressing applied to the left groin. The patient taken to same day surgery in good condition. Type of Anesthesia: Local (0.5% marcaine ) Anesthesia Comment: plus MAC Findings: Short segment complete occlusion of the right popliteal artery just above the knee with moderate distal superficial femoral artery disease, occlusion right tibial peroneal trunk, occlusion of the proximal right posterior tibial artery , anterior tibial artery never visualized, peroneal artery with marked disease Type of Fluids Used:: Lactated Ringers Total Amount of Fluid Infused:: 400cc Urine output: 150 cc EBL: 100cc Complications:: none Needle/Sponge Count:: correct Disposition/Condition: Pt. tolerated procedure without difficulty. Patient taken back to the CCU in stable condition.
[2024-04-25] MEDS ORDERED: PRECEDEX INJ VIAL IVP ONE (12:57)
[2024-04-25] MEDS ORDERED: XYLOCAINE 2 % (PLAIN) ONE (12:57)
== END 2023-06-26 13:20 | disposition home health service (06) | DRG 271 ==
LOC: ICU 20:35
PROVIDERS: ADMIT Surgery; ATTEND Surgery

== ENCOUNTER 2023-07-22 10:37 | Inpatient (IN) ==
[2023-07-22 16:23] VITALS: BMI 24.6
[2023-07-22] MEDS ORDERED: NovoLIN R (or HumuLIN R) SC PRN (16:36)
[2023-07-22] MEDS ORDERED: PHARMACY CONSULT - VANCOMYCIN XX SCH (17:00)
[2023-07-22 17:16] LABS: BASOPHILS % (AUTO) 0.4 % (0.2-1.0); EOSINOPHILS # (AUTO) 0.1 x10^3/uL (0.0-0.2); EOSINOPHILS % (AUTO) 0.8 % (0.9-2.9); HEMATOCRIT 33.7 % (42.0-54.0); LYMPHOCYTES # (AUTO) 1.8 X10^3/uL (1.3-2.9); LYMPHOCYTES % (AUTO) 26.3 % (21.0-51.0); MEAN CORPUSCULAR HEMOGLOBIN 28.8 pg (27.0-34.0); MEAN CORPUSCULAR HGB CONC 32.6 g/dL (33.0-35.0); MEAN CORPUSCULAR VOLUME 88.3 fL (80.0-100.0); MEAN PLATELET VOLUME 9.2 fL (7.4-11.0); MONOCYTES # (AUTO) 0.5 x10^3/uL (0.3-0.8); NEUTROPHILS # (AUTO) 4.6 x10^3/uL (2.2-4.8); NEUTROPHILS % (AUTO) 65.5 % (42.0-75.0); PLATELET COUNT 247 X10^3/uL (150.0-450.0); RED BLOOD COUNT 3.82 X10^6/uL (4.7-6.0)
--- NOTE | 2023-07-22 17:19 | NOTE.SOAP ---
Soap Note Note for Day of Date of Exam: 07/22/23 Subjective Data Subjective Data: 73M with a h/o PAD and DM was seen bedside this afternoon alongside family members. Patient noted to have painful and necrotic toes and forefoot to the left foot. Patient states that it has been progressively getting worse. Patient recently underwent vascular intervention with Dr. Canseco. Denies any constitutional symptoms at this time. Objective Data Objective Data: Dry necrosis along the dorsal aspect of the left foot to bone with necrosis of digits 1-4. No open wounds, crepitus or purulence noted. There is erythema extending proximally and malodor. Neurovascular status intact. Assessment Assessment: 73M with dry gangrene and cellulitis to the left foot Plan Plan: Patient seen bedside along with family members. Discussed all treatment options including different amputations. At this time we recommend a TMA due to soft tissue compromise. Patient understands that there is risks wtih the procedure including infection, dehiscience and proximal amputation. Patient agrees to the TMA and understands that he will have to be NWB to the E. He will make arrangements at home to not go upstairs in his home until he is fully healed. Patient placed on IV Clinda. Our plan is to take the patient to surgery on thursday for a TMA. NPO after midnight thursday
[2023-07-22 17:26] LABS: ALANINE AMINOTRANSFERASE 14 Units/L (12-78); ALBUMIN 2.7 g/dL (3.4-5.0); ALKALINE PHOSPHATASE 125 Units/L (46-116); ASPARTATE AMINO TRANSFERASE 14 Units/L (15-37); BLOOD UREA NITROGEN 21 mg/dL (7-18); CALCIUM 8.6 mg/dL (8.5-10.1); CARBON DIOXIDE 26.2 mmol/L (21-32); CHLORIDE 103 mmol/L (98-107); COR CA(FOR HYPOALB) 9.6 mg/dL (8.5-10.1); CREATININE 0.98 mg/dL (0.70-1.30); GLUCOSE 102 mg/dL (65-99); SODIUM 139 mmol/L (136-145); TOTAL PROTEIN 7.4 g/dL (6.4-8.2); eGFR NON BLACK RACES > 60 (>60)
[2023-07-22] MEDS: LR 1,000 ML IV 1,000 ML IV SCH (17:29)
[2023-07-22] MEDS ORDERED: CONSULT PHARMACY - POTASSIUM & MAGNESIUM XX SCH (19:00)
[2023-07-22] MEDS ORDERED: VANCOMYCIN 1 GRAM PREMIX (ADDVANTAGE) 250 ML IV SCH (20:00)
[2023-07-22] MEDS: VANCOMYCIN IV *PREMIX 1 G/200 ML BAG 1 G/200 ML PIGGYBACK IV SCH (20:50)
[2023-07-22] MEDS: MAG-OX TAB PO SCH (20:50)
[2023-07-22] MEDS: AMBIEN PO PRN (20:51)
[2023-07-22] MEDS: XARELTO PO SCH (20:51)
[2023-07-22] MEDS: CLEOCIN 600 MG IV PREMIX 600 MG/50 ML BAG IV SCH (22:06)
[2023-07-23] MEDS: LIPITOR TAB 40 MG PO SCH (08:47)
[2023-07-23] MEDS: ASPIRIN 81 MG CHEWTAB PO SCH (08:47)
[2023-07-23] MEDS: NORVASC TAB 5 MG PO SCH (08:48)
[2023-07-23] MEDS: PLAVIX PO SCH (08:48)
[2023-07-23] MEDS: ZESTRIL TAB 40 MG PO SCH (08:48)
--- NOTE | 2023-07-23 12:08 | EKG ---
Test Reason : bp 185/85 Blood Pressure : */* mmHG Vent. Rate : 68 BPM Atrial Rate : 68 BPM P-R Int : 246 ms QRS Dur : 120 ms QT Int : 428 ms P-R-T Axes : 55 -89 9 degrees QTc Int : 455 ms Sinus rhythm with 1st degree AV block Left axis deviation Right bundle branch block Cannot rule out Anterior infarct , age undetermined Abnormal ECG When compared with ECG of 25-JUN-2023 04:26, No significant change was found Confirmed by Aung Maier MD ([id number]) on 07/24/2023 7:44:08 AM Referred By: Confirmed By: Aung Maier MD
[2023-07-23] MEDS: CATAPRES TAB 0.1 MG PO ONE (12:25)
--- NOTE | 2023-07-23 12:56 | NOTE.SOAP ---
Soap Note Note for Day of Date of Exam: 07/23/23 Subjective Data Subjective Data: HD day #1 after admit for gangrenous changes right foot s/p right LE arterial intervention several weeks ago which restored blood flow but patient waited too long to get good result of foot. Placed on IV antibiotics . For transmetatarsal amputation tomorrow. Objective Data Temperature: 97.4 F Pulse Rate: 62 Respiratory Rate: 18 Blood Pressure: 160/75 O2 Sat by Pulse Oximetry: 99 Objective Data: Gangrene of right forefoot with cellulitis and purulent drainage . Excellent pulse right PT and AT arteries Assessment Assessment: Gangrene right forefoot Plan Plan: Right transmetatarsal amputation tomorrow per Podiatry
[2023-07-24] MEDS ORDERED: NOZIN NASAL SANITIZER TP ONE (04:13)
[2023-07-24] MEDS: HIBICLENS WASH EXT ONE (04:16)
[2023-07-24] MEDS: NOZIN NASAL SANITIZER TP ONE (04:35)
[2023-07-24 08:05] LABS: CREATININE 0.76 mg/dL (0.70-1.30); VANCOMYCIN,TROUGH 13.1 ug/mL (15-20)
[2023-07-24] MEDS: PHARMACY COMMENT IV SCH (08:40)
[2023-07-24] MEDS: NS 1,000 ML IV 1,000 ML ONE (09:35)
[2023-07-24] MEDS: ANCEF VIAL 1 GRAM ONE (09:35)
[2023-07-24] MEDS: NS 100 ML IV 100 ML ONE ×2 (09:35→13:05)
[2023-07-24] MEDS: FENTANYL VIAL INJ 100 mcg ONE (09:44)
[2023-07-24] MEDS: ZOFRAN INJ 4 MG VIAL ONE (09:44)
[2023-07-24] MEDS: DIPRIVAN VIAL 20 ML ONE ×2 (09:44→10:50)
[2023-07-24] MEDS ORDERED: PRECEDEX INJ VIAL IVP ONE (09:44)
[2023-07-24] MEDS: KETAMINE 50 MG/5 ML-NACL SYRNG ONE (09:44)
[2023-07-24] MEDS: PRECEDEX INJ VIAL IVP ONE (09:44)
[2023-07-24] MEDS: PEPCID 20 MG VIAL ONE (09:44)
[2023-07-24] MEDS: VERSED ONE (09:44)
[2023-07-24] MEDS ORDERED: XYLOCAINE 2 % (PLAIN) ONE (09:44)
[2023-07-24] MEDS: BETADINE SOLN ONE (09:44)
[2023-07-24] MEDS: OFIRMEV IV 1000 MG VIAL 1,000 MG/100 ML VIAL IV ONE (09:57)
[2023-07-24] MEDS: ROBINUL ONE (10:02)
[2023-07-24] MEDS: EPHEDRINE SULFATE INJ ONE (10:04)
[2023-07-24] MEDS: MARCAINE 0.25% INJ ONE (10:05)
[2023-07-24] MEDS: HYDROGEN PEROXIDE 3% ONE (10:26)
[2023-07-24] MEDS: PERCOCET TAB 5/325 MG PO PRN (13:00)
[2023-07-24] MEDS: DILAUDID INJ IVP PRN (13:57)
--- NOTE | 2023-07-25 07:54 | NOTE.SOAP ---
Soap Note Note for Day of Date of Exam: 07/25/23 Subjective Data Subjective Data: 73M s/p R TMA with flap to the Right foot POD1, doing well today. Patient has no complaints and is not experiencing any pain. Denies any constitutional symptoms Objective Data Objective Data: Deferred- dressing c/d/i without strikethrough this morning Assessment Assessment: 73M with dry gangrene and cellulitis to the right foot- s/p RIGHT TMA with flap (DOS:07/24/23) Plan Plan: Patient seen bedside this am. Patient is doing well and is ready to be discharged. I explained to him that he must remain NWB to the RLE using assistive device. He has support at home to help him. He is to leave dressings on until his follow up visit with Dr. Boucher. He must call the office to make an appointment. Pain medication and antibiotic prescription in chart; please dispense upon discharge. He is stable for discharge from a podiatry standpoint.
[2023-07-25] MEDS: MAG-OX TAB PO SCH (11:01)
--- NOTE | 2023-07-25 11:22 | W.DIS.FURT ---
Summary of Discharge Discharge Summary of Date Date of Exam: 07/25/23 Admission Date Date of Admission: 07/22/23 Admission Diagnosis Hospital Course: This is a 73 year old male who was seen several weeks ago with an acutely ischemis and endangered right leg . he underwent admission, heparin drip and revascularization. He had a ischemic changes to the right foot and that has been followed and has worsened . He was admitted and placed on IV antibiotics. Yessterday he underwent right transmetatarsal amputation. He will be discharged at this time on his usual medications to include Xarelto and aspirin .Iin addition he will be given Percfocet , 5 milligram tablets 1 every 6 hours PRN pain and Keflex by mouth . He will follow up with Dr. Boucher in 1 week . I will see him in 2 weeks. Vital Signs: Vital Signs (72 hours) 07/23/23 12:56 07/22/23 16:00 07/22/23 16:44 Temperature 97.4 F L 98.2 F Pulse Rate 62 Pulse Rate [Right Brachial] 68 Respiratory Rate 18 18 Blood Pressure 160/75 Blood Pressure [Left Arm] Blood Pressure [Right Arm] 158/71 O2 Sat by Pulse Oximetry 99 99 Oxygen Delivery Method Room Air Room Air 07/22/23 19:00 07/22/23 20:00 07/23/23 00:00 Temperature 99.0 F 98.3 F Pulse Rate Pulse Rate [Right Brachial] 68 72 Respiratory Rate 20 20 Blood Pressure Blood Pressure [Left Arm] Blood Pressure [Right Arm] 146/65 131/60 O2 Sat by Pulse Oximetry 100 98 Oxygen Delivery Method Room Air Room Air Room Air 07/23/23 04:00 07/23/23 07:00 07/23/23 11:48 Temperature 97.9 F 97.6 F Pulse Rate Pulse Rate [Right Brachial] 75 62 Respiratory Rate 18 18 Blood Pressure Blood Pressure [Left Arm] Blood Pressure [Right Arm] 115/58 185/85 O2 Sat by Pulse Oximetry 98 99 Oxygen Delivery Method Room Air Room Air Room Air 07/23/23 07:55 07/23/23 11:53 07/23/23 13:50 Temperature 97.4 F L Pulse Rate Pulse Rate [Right Brachial] 69 Respiratory Rate 18 Blood Pressure Blood Pressure [Left Arm] Blood Pressure [Right Arm] 155/76 160/75 128/65 O2 Sat by Pulse Oximetry 100 Oxygen Delivery Method Room Air 07/23/23 16:00 07/23/23 19:00 07/23/23 20:00 Temperature 97.1 F L 98.2 F Pulse Rate Pulse Rate [Right Brachial] 61 58 L Respiratory Rate 18 20 Blood Pressure Blood Pressure [Left Arm] Blood Pressure [Right Arm] 136/63 151/70 O2 Sat by Pulse Oximetry 96 99 Oxygen Delivery Method Room Air Room Air Room Air 07/24/23 00:00 07/24/23 04:00 07/24/23 09:28 Temperature 98.2 F 97.8 F Pulse Rate 51 L Pulse Rate [Right Brachial] 64 73 Respiratory Rate 18 18 Blood Pressure Blood Pressure [Left Arm] Blood Pressure [Right Arm] 132/65 136/62 O2 Sat by Pulse Oximetry 97 98 Oxygen Delivery Method Room Air Room Air 07/24/23 09:28 07/24/23 13:00 07/24/23 13:57 Temperature 98.1 F Pulse Rate 61 Pulse Rate [Right Brachial] Respiratory Rate 18 18 18 Blood Pressure 160/99 Blood Pressure [Left Arm] Blood Pressure [Right Arm] O2 Sat by Pulse Oximetry 99 Oxygen Delivery Method Room Air 07/24/23 14:00 07/24/23 16:40 07/24/23 14:27 Temperature Pulse Rate Pulse Rate [Right Brachial] Respiratory Rate 18 18 18 Blood Pressure Blood Pressure [Left Arm] Blood Pressure [Right Arm] O2 Sat by Pulse Oximetry Oxygen Delivery Method 07/24/23 07:15 07/24/23 08:00 07/24/23 16:00 Temperature 97.5 F L 97.8 F Pulse Rate Pulse Rate [Right Brachial] 65 61 Respiratory Rate 18 20 Blood Pressure Blood Pressure [Left Arm] Blood Pressure [Right Arm] 132/70 127/63 O2 Sat by Pulse Oximetry 99 96 Oxygen Delivery Method Room Air Room Air Room Air 07/24/23 17:10 07/24/23 10:23 07/24/23 10:38 Temperature 98.1 F 97.6 F Pulse Rate Pulse Rate [Right Brachial] 72 64 Respiratory Rate 18 18 18 Blood Pressure Blood Pressure [Left Arm] Blood Pressure [Right Arm] 131/66 132/73 O2 Sat by Pulse Oximetry 96 99 Oxygen Delivery Method 07/24/23 10:53 07/24/23 11:08 02/09/24 11:23 Temperature 97.7 F 97.6 F 97.4 F L Pulse Rate Pulse Rate [Right Brachial] 61 59 L 57 L Respiratory Rate 18 18 17 Blood Pressure Blood Pressure [Left Arm] Blood Pressure [Right Arm] 150/68 145/65 134/74 O2 Sat by Pulse Oximetry 98 99 97 Oxygen Delivery Method 07/24/23 12:23 07/24/23 13:23 07/24/23 14:23 Temperature 97.5 F L 97.1 F L 98.5 F Pulse Rate Pulse Rate [Right Brachial] 58 L 59 L 59 L Respiratory Rate 18 18 18 Blood Pressure Blood Pressure [Left Arm] Blood Pressure [Right Arm] 129/71 134/74 150/71 O2 Sat by Pulse Oximetry 97 99 98 Oxygen Delivery Method 07/24/23 15:23 07/24/23 20:21 07/24/23 19:00 Temperature 99.0 F Pulse Rate Pulse Rate [Right Brachial] 54 L Respiratory Rate 18 19 Blood Pressure Blood Pressure [Left Arm] Blood Pressure [Right Arm] 142/70 O2 Sat by Pulse Oximetry 98 Oxygen Delivery Method Room Air 07/24/23 20:00 07/24/23 20:51 07/25/23 00:00 Temperature 97.7 F 98.4 F Pulse Rate Pulse Rate [Right Brachial] 84 74 Respiratory Rate 20 18 20 Blood Pressure Blood Pressure [Left Arm] 137/63 Blood Pressure [Right Arm] 166/84 O2 Sat by Pulse Oximetry 96 Oxygen Delivery Method Room Air Room Air 07/25/23 04:00 07/25/23 05:00 Temperature 100.3 F H 97.9 F Pulse Rate Pulse Rate [Right Brachial] 84 Respiratory Rate 20 Blood Pressure Blood Pressure [Left Arm] Blood Pressure [Right Arm] 118/64 O2 Sat by Pulse Oximetry 97 Oxygen Delivery Method Room Air Labs: Laboratory Last Values WBC 7.0 X10^3/uL (3.6-10.0) 07/22/23 17:05 RBC 3.82 X10^6/uL (4.7-6.0) L 07/22/23 17:05 Hgb 11.0 g/dL (13.5-18.0) L 07/22/23 17:05 Hct 33.7 % (42.0-54.0) L 07/22/23 17:05 MCV 88.3 fL (80.0-100.0) 07/22/23 17:05 MCH 28.8 pg (27.0-34.0) 07/22/23 17:05 MCHC 32.6 g/dL (33.0-35.0) L 07/22/23 17:05 RDW 15.0 % (11.6-16.5) 07/22/23 17:05 Plt Count 247 X10^3/uL (150.0-450.0) 07/22/23 17:05 MPV 9.2 fL (7.4-11.0) 07/22/23 17:05 Neut % (Auto) 65.5 % (42.0-75.0) 07/22/23 17:05 Lymph % (Auto) 26.3 % (21.0-51.0) 07/22/23 17:05 Gordon % (Auto) 7.0 % (0.0-13.0) 07/22/23 17:05 Eos % (Auto) 0.8 % (0.9-2.9) L 07/22/23 17:05 Baso % (Auto) 0.4 % (0.2-1.0) 07/22/23 17:05 Neut # (Auto) 4.6 x10^3/uL (2.2-4.8) 07/22/23 17:05 Lymph # (Auto) 1.8 X10^3/uL (1.3-2.9) 07/22/23 17:05 Gordon # (Auto) 0.5 x10^3/uL (0.3-0.8) 07/22/23 17:05 Eos # (Auto) 0.1 x10^3/uL (0.0-0.2) 07/22/23 17:05 Baso # (Auto) 0.0 X10^3/uL (0.0-0.1) 07/22/23 17:05 Absolute Nucleated RBC 0.0 /100WBC 07/22/23 17:05 Sodium 139 mmol/L (136-145) 07/22/23 17:05 Corrected Sodium TNP 07/22/23 17:05 Potassium 4.0 mmol/L (3.5-5.1) 07/22/23 17:05 Chloride 103 mmol/L (98-107) 07/22/23 17:05 Carbon Dioxide 26.2 mmol/L (21-32) 07/22/23 17:05 BUN 21 mg/dL (7-18) H 07/22/23 17:05 Creatinine 0.76 mg/dL (0.70-1.30) 07/24/23 07:40 Est GFR (MDRD) Af Amer > 60 (>60) 07/22/23 17:05 Est GFR (MDRD) Non-Af > 60 (>60) 07/22/23 17:05 Glucose 102 mg/dL (65-99) H 07/22/23 17:05 POC Glucose (mg/dL) 143 mg/dL (65-99) H 07/25/23 05:01 Calcium 8.6 mg/dL (8.5-10.1) 07/22/23 17:05 Corrected Calcium 9.6 mg/dL (8.5-10.1) 07/22/23 17:05 Magnesium 1.7 mg/dL (2.0-2.9) L 07/22/23 17:05 Total Bilirubin 0.20 mg/dL (0.2-1.0) 07/22/23 17:05 AST 14 Units/L (15-37) L 07/22/23 17:05 ALT 14 Units/L (12-78) 07/22/23 17:05 Alkaline Phosphatase 125 Units/L (46-116) H 07/22/23 17:05 Total Protein 7.4 g/dL (6.4-8.2) 07/22/23 17:05 Albumin 2.7 g/dL (3.4-5.0) L 07/22/23 17:05 Globulin 4.7 g/dL (2.5-4.5) H 07/22/23 17:05 Albumin/Globulin Ratio 0.6 Ratio (1.1-2.1) L 07/22/23 17:05 Vancomycin Trough 13.1 ug/mL (15-20) L 07/24/23 07:40 Impression: ischemic right foot with infection Reason For Visit: INFECTED RIGHT FOOT Discharge Date Discharge Date: 07/25/23 Discharge Diagnosis All Active Problems (Updated 06/25/23 @ 03:50 by Chapito Canseco) History of CVA (cerebrovascular accident) (Acute) Chronic ischemic heart disease, unspecified (Acute) Essential (primary) hypertension (Acute) Type 2 diabetes mellitus without complications (Acute) Atherosclerosis of [place] arteries of extremities with rest pain, left leg (Acute) Atherosclerosis of [place] arteries of extremities with rest pain, right leg (Acute) Plan of Treatment: Continue with present treatment and follow up plan. Pt is to keep follow up appointment as instructed and take medications as ordered. Discharge Medications Discharge Medications: No Known Allergies Allergy (Verified 06/24/23 22:28) CONTINUE taking the following medications acetaminophen 325 mg tablet (Tylenol) 650 mg PO Q6H PRN 07/22/23 [History] aspirin 325 mg tablet 325 mg PO QDAY 07/22/23 [History] cetirizine 10 mg tablet (Zyrtec) 10 mg PO QDAY 07/22/23 [History] docusate sodium 100 mg capsule (Stool Softener) 100 mg PO QDAY 07/22/23 [History] ferrous sulfate 324 mg (65 mg iron) tablet,delayed release 324 mg PO QDAY [History] insulin glargine 100 unit/mL subcutaneous cartridge 15 unit subcut HS 07/22/23 [History] metoprolol tartrate 25 mg tablet 25 mg PO BID 07/22/23 [History] Plavix 75 mg daily Aspirin 81 mg daily Keflex 500 mg QID Percocet 5 mg po q 6hr PRN pain Discharge Disposition Assessment: see hospital course Discharge Plan Discharge Plan Hospital Course: This is a 73 year old male who was seen several weeks ago with an acutely ischemis and endangered right leg . he underwent admission, heparin drip and revascularization. He had a ischemic changes to the right foot and that has been followed and has worsened . He was admitted and placed on IV antibiotics. Yessterday he underwent right transmetatarsal amputation. He will be discharged at this time on his usual medications to include Xarelto and aspirin .Iin addition he will be given Percfocet , 5 milligram tablets 1 every 6 hours PRN pain and Keflex by mouth . He will follow up with Dr. Boucher in 1 week . I will see him in 2 weeks. Patient Disposition: HOME HEALTH SERVICE Condition: Stable Health Concerns: Post Hospitalization: new medications and changes needed to prevent readmission or further decline. Pt educated and given instructions on all concerns. Plan of Treatment: Continue with present treatment and follow up plan. Pt is to keep follow up appointment as instructed and take medications as ordered. Assessment: see hospital course Prescriptions: Continued atorvastatin 40 mg Tablet 20 mg PO QHS clopidogrel 75 mg Tablet 75 mg PO QDAY amlodipine 5 mg Tablet 5 mg PO QDAY metformin 1,000 mg Tablet 1,000 mg PO BIDWMEAL lisinopril 40 mg Tablet 20 mg PO QDAY [id number] [Fioricet] 50-300-40 mg Capsule 1 cap PO Q8H PRN (Reason: Headache) oxycodone-acetaminophen [Percocet] 5-325 mg tablet 1 tab PO Q6H MDD 4 PRNQty: 30 0RF Lantus U-100 Insulin 100 unit/mL Cartridge 15 unit SUBCUT HS aspirin 325 mg Tablet 325 mg PO QDAY acetaminophen [Tylenol] 325 mg Tablet 650 mg PO Q6H PRN cetirizine [Zyrtec] 10 mg Tablet 10 mg PO QDAY docusate sodium [Stool Softener] 100 mg Capsule 100 mg PO QDAY metoprolol tartrate 25 mg Tablet 25 mg PO BID ferrous sulfate 324 mg (65 mg iron) Tablet,Delayed Release (Dr/Ec) 324 mg PO QDAY Follow ups/Referrals Follow ups/Referrals: Venancio Boucher [CONSULTING PHYSICIAN] - 1 WEEK Instructions Activity Restrictions/Additional Instructions: Non weight bearing to right lower extremity and leave dressing in place until follow up with Dr. Boucher. please call Dr. Boucher office on Thursday to schedule appointment. Stand Alone Forms: Excuse From Work or School, Post Hospital Follow Up Care
--- NOTE | 2023-07-25 11:30 | NOTE.SOAP ---
Soap Note Note for Day of Date of Exam: 07/24/23 Subjective Data Subjective Data: patient in the OR for right TMA . Did well. Objective Data Temperature: 99.0 F Pulse Rate: 54 Respiratory Rate: 18 Blood Pressure: 142/70 O2 Sat by Pulse Oximetry: 98 Objective Data: Successful right TMA Assessment Assessment: Ischemic right foot , s/p TMA Plan Plan: Probably d/c home 07/25/2023
[2023-07-25 11:31] VITALS: RESP 18; TEMP 99; O2SAT 98
[2023-07-25 11:35] VITALS: BP 130/62; PULSE 84
--- NOTE | 2023-07-30 16:54 | DR.UPDATE ---
H&P UPDATE Review Yes Any changes to H&P?: No Changes noted:: This is the update note for the H&P dated 07/22/2023 and created in [facility] EMR. No changes .
== END 2023-07-25 11:05 | disposition home health service (06) | DRG 580 ==
LOC: MED/SURG 15:05
PROVIDERS: ADMIT Surgery; ATTEND Surgery
DX: I96 Gangrene, not elsewhere classified; L03.115 Cellulitis of right lower limb; I10 Essential (primary) hypertension

== ENCOUNTER 2023-09-04 09:30 | Inpatient (IN) ==
[2023-09-04] MEDS ORDERED: NS 1,000 ML IV 1,000 ML ONE ×4 (09:33→12:22)
--- NOTE | 2023-09-04 09:35 | EKG ---
Test Reason : weakness Blood Pressure : */* mmHG Vent. Rate : 83 BPM Atrial Rate : * BPM P-R Int : * ms QRS Dur : 116 ms QT Int : 488 ms P-R-T Axes : * 267 30 degrees QTc Int : 573 ms NSR with first degree AV block Right bundle branch block Inferior infarct , age undetermined Abnormal ECG When compared with ECG of 23-JUL-2023 11:49, Nonspecific T wave abnormality no longer evident in Anterior leads QT has lengthened anterior infarct not present Confirmed by Aung Maier MD ([id number]) on 09/04/2023 11:13:47 AM Referred By: Confirmed By: Aung Maier MD
[2023-09-04] MEDS: NS 1,000 ML IV 1,000 ML IV ONE ×4 (09:43→11:22)
[2023-09-04] MEDS ORDERED: ZOFRAN INJ 4 MG VIAL ONE (09:47)
--- NOTE | 2023-09-04 09:48 | DR.DIZZY ---
HPI Time seen Time Seen by Provider: 09/04/23 09:46 Complaint Chief Complaint Doctor Comments: Patient was sent over from the outpatient surgical clinic because he was lethargic and had been nauseated and vomiting yesterday they wanted to be evaluated here in the emergency department. He recently had a partial amputation of his right foot and that he was here for follow-up for that. He wa found to be lethargic and was sent to er for further evaluation. COVID-19 Coronavirus risk:travel/contact w/high risk person: No Has patient experienced Coronavirus symptoms: No Context Stroke Symptoms: None PMH PMH Past Medical History: Coronary Artery Disease, CVA, Diabetes, Dyslipidemia and Hypertension Past Surgical History: Yes Surgical History: CABG/Valve Surgery and Other Travel Risk Coronavirus risk:travel/contact w/high risk person: No Has patient experienced Coronavirus symptoms: No ROS Review of Systems Constitutional: Weakness and Other (diarrhea,nausea and vomiting) Eyes: No Symptoms Reported ENTM: No Symptoms Reported Respiratoy: No Symptoms Reported Cardiovascular: No Symptoms Reported Gastrointestinal/Abdominal: Diarrhea, Nausea and Vomiting Genitourinary: No Symptoms Reported Neurological: No Symptoms Reported Musculoskeletal: Right and Foot (partial amputation) Integumentary: No Symptoms Reported Hematologic/Lymphatic: No Symptoms Reported Endocrine: No Symptoms Reported Psychiatric: No Symptoms Reported PE Vital Signs Vitals: Vital Signs Temperature 98.2 F Pulse Rate 45 Pulse Rate 51 Pulse Rate 47 Pulse Rate 49 Pulse Rate 54 Pulse Rate 57 Pulse Rate 56 Pulse Rate 49 Pulse Rate 54 Pulse Rate 47 Pulse Rate 48 Pulse Rate 49 Pulse Rate 45 Pulse Rate 52 Pulse Rate 50 Pulse Rate 52 Pulse Rate 51 Pulse Rate 47 Pulse Rate 47 Pulse Rate 41 Pulse Rate 52 Pulse Rate 46 Pulse Rate 46 Pulse Rate 39 Pulse Rate 39 Pulse Rate 46 Pulse Rate 57 Pulse Rate 75 Pulse Rate 78 Pulse Rate 74 Pulse Rate 79 Pulse Rate 77 Pulse Rate 83 Pulse Rate 83 Respiratory Rate 22 Respiratory Rate 28 Respiratory Rate 17 Respiratory Rate 24 Respiratory Rate 26 Respiratory Rate 14 Respiratory Rate 25 Respiratory Rate 24 Respiratory Rate 29 Respiratory Rate 16 Respiratory Rate 27 Respiratory Rate 30 Respiratory Rate 31 Respiratory Rate 35 Respiratory Rate 20 Respiratory Rate 24 Respiratory Rate 27 Respiratory Rate 27 Respiratory Rate 24 Respiratory Rate 23 Respiratory Rate 43 Respiratory Rate 27 Respiratory Rate 34 Respiratory Rate 41 Respiratory Rate 27 Respiratory Rate 26 Respiratory Rate 26 Respiratory Rate 24 Respiratory Rate 18 Respiratory Rate 26 Respiratory Rate 26 Respiratory Rate 39 Respiratory Rate 28 Blood Pressure 105/60 Blood Pressure 97/48 Blood Pressure 105/50 Blood Pressure 97/56 Blood Pressure 90/59 Blood Pressure 98/49 Blood Pressure 130/58 Blood Pressure 85/60 Blood Pressure 100/50 Blood Pressure 97/51 Blood Pressure 111/49 Blood Pressure 98/56 Blood Pressure 96/51 Blood Pressure 96/51 Blood Pressure 76/42 Blood Pressure 76/42 Blood Pressure 76/42 Blood Pressure 83/45 Blood Pressure 89/46 Blood Pressure 74/37 Blood Pressure 93/48 Blood Pressure 93/51 Blood Pressure 87/49 Blood Pressure 82/46 Blood Pressure 68/36 Blood Pressure 74/45 O2 Sat by Pulse Oximetry 97 O2 Sat by Pulse Oximetry 98 O2 Sat by Pulse Oximetry 96 O2 Sat by Pulse Oximetry 96 O2 Sat by Pulse Oximetry 99 O2 Sat by Pulse Oximetry 100 O2 Sat by Pulse Oximetry 98 O2 Sat by Pulse Oximetry 98 O2 Sat by Pulse Oximetry 98 O2 Sat by Pulse Oximetry 100 O2 Sat by Pulse Oximetry 97 O2 Sat by Pulse Oximetry 96 O2 Sat by Pulse Oximetry 97 O2 Sat by Pulse Oximetry 95 O2 Sat by Pulse Oximetry 96 O2 Sat by Pulse Oximetry 92 O2 Sat by Pulse Oximetry 95 O2 Sat by Pulse Oximetry 93 O2 Sat by Pulse Oximetry 93 O2 Sat by Pulse Oximetry 96 O2 Sat by Pulse Oximetry 96 O2 Sat by Pulse Oximetry 95 O2 Sat by Pulse Oximetry 93 O2 Sat by Pulse Oximetry 97 O2 Sat by Pulse Oximetry 98 O2 Sat by Pulse Oximetry 99 O2 Sat by Pulse Oximetry 100 O2 Sat by Pulse Oximetry 100 O2 Sat by Pulse Oximetry 100 O2 Sat by Pulse Oximetry 100 O2 Sat by Pulse Oximetry 100 O2 Sat by Pulse Oximetry 100 O2 Sat by Pulse Oximetry 100 O2 Sat by Pulse Oximetry 100 General Limitations: Physical Limitation (bed bound) General Appearance: Lethargic Head Head Exam: Normal Inspection, Atraumatic and Normocephalic Eyes Eye exam: Normal Appearance, PERRL and EOMI Pupils: Regular, Round: Bilateral ENT ENT Exam: Normal Exam, Normal Oropharynx and Normal External Ear Exam Neck Neck Exam: Normal Inspection, Full ROM and Trachea Midline Chest Chest Inspection: Normal Inspection and Symmetric Chest Wall Rise Respiratory Respiratory Exam: Normal Lung Sounds Bilat Respiratory Exam: Bilateral: Clear to Auscultation Cardiovascular Cardiovascular Exam: Regular Rate and Normal Rhythm Abdominal Exam Abdominal Exam: Normal Inspection, Normal Bowel Sounds and Soft Rectal Rectal Exam: Deferred Extremeties Extremities Exam: Other (r foot partial amputation with some drainage) MDM Differential Diagnosis Differential Diagnosis: Dehydration, Electrolyte disorder and Other (sepsis) COURSE Treatment Treatment: This patient became unstable during ER evaluation. He was given 3 L of normal saline and was started initially on normal saline at 125 cc/h but was later bumped up to 175 cc an hour. The patient required is being started on Levophed for a low blood pressure and a low pulse. The patient responded to this treatment and the blood pressure did come up to average between 95/60 on the Levophed. And his pulse came up to be 55. The patient had a lactic acid le precious that was 6.1 and had a slightly elevated WBC of 14.8. The EKG initially showed normal sinus rhythm with a first-degree AV block but later alternated back to maybe A-fib and back to normal sinus rhythm with first-degree block. The patient did have a troponin done it was 53.9 did a chest x-ray that was negative for antral thoracic abnormality. The right foot was shown to have some drainage coming from the anterior or dorsal surface surface was not cultured here but according to the nurse it had been recently cultured the [facility] site [facility] office. I spoke to Dr. Rosen about this patient at 1330 and he stated that the patient to be admitted to the hospital we did increased her fluids to normal sa line 125 cc/h and she is going to continue on the Zosyn as of now Cleocin 600 mg IV every 8 hours. [facility] Labs Reviewed Laboratory Results Reviewed?: Yes 09/04/23 09:35 09/04/23 09:35 Laboratory: WBC 14.8 X10^3/uL (3.6-10.0) H 09/04/23 09:35 RBC 4.65 X10^6/uL (4.7-6.0) L 09/04/23 09:35 Hgb 13.2 g/dL (13.5-18.0) L 09/04/23 09:35 Hct 41.4 % (42.0-54.0) L 09/04/23 09:35 MCV 89.1 fL (80.0-100.0) 09/04/23 09:35 MCH 28.5 pg (27.0-34.0) 09/04/23 09:35 MCHC 32.0 g/dL (33.0-35.0) L 09/04/23 09:35 RDW 15.8 % (11.6-16.5) 09/04/23 09:35 Plt Count 237 X10^3/uL (150.0-450.0) 09/04/23 09:35 MPV 10.2 fL (7.4-11.0) 09/04/23 09:35 Neut % (Auto) 83.7 % (42.0-75.0) H 09/04/23 09:35 Lymph % (Auto) 11.5 % (21.0-51.0) L 09/04/23 09:35 [place] % (Auto) 4.6 % (0.0-13.0) 09/04/23 09:35 Eos % (Auto) 0.0 % (0.9-2.9) L 09/04/23 09:35 Baso % (Auto) 0.2 % (0.2-1.0) 09/04/23 09:35 Neut # (Auto) 12.4 x10^3/uL (2.2-4.8) H 09/04/23 09:35 Lymph # (Auto) 1.7 X10^3/uL (1.3-2.9) 09/04/23 09:35 [place] # (Auto) 0.7 x10^3/uL (0.3-0.8) 09/04/23 09:35 Eos # (Auto) 0.0 x10^3/uL (0.0-0.2) 09/04/23 09:35 Baso # (Auto) 0.0 X10^3/uL (0.0-0.1) 09/04/23 09:35 Absolute Nucleated RBC 0.1 /100WBC 09/04/23 09:35 Sodium 141 mmol/L (136-145) 09/04/23 09:35 Corrected Sodium TNP 09/04/23 09:35 Potassium 5.3 mmol/L (3.5-5.1) H 09/04/23 09:35 Chloride 104 mmol/L (98-107) 09/04/23 09:35 Carbon Dioxide 14.0 mmol/L (21-32) L* 09/04/23 09:35 BUN 33 mg/dL (7-18) H 09/04/23 09:35 Creatinine 2.48 mg/dL (0.70-1.30) H 09/04/23 09:35 Est GFR (MDRD) Af Amer 33 (>60) L 09/04/23 09:35 Est GFR (MDRD) Non-Af 27 (>60) L 09/04/23 09:35 Glucose 93 mg/dL (65-99) 09/04/23 09:35 Lactic Acid 6.1 mmol/L (0.4-2.0) H* 09/04/23 12:00 Calcium 9.3 mg/dL (8.5-10.1) 09/04/23 09:35 Corrected Calcium 9.9 mg/dL (8.5-10.1) 09/04/23 09:35 Total Bilirubin 0.90 mg/dL (0.2-1.0) 09/04/23 09:35 AST 34 Units/L (15-37) 09/04/23 09:35 ALT 15 Units/L (12-78) 09/04/23 09:35 Alkaline Phosphatase 130 Units/L (46-116) H 09/04/23 09:35 Creatine Kinase 156 Units/L (39-308) 09/04/23 09:35 Troponin I High Sens 53.9 ng/L (4.0-60.0) 09/04/23 09:35 Total Protein 7.9 g/dL (6.4-8.2) 09/04/23 09:35 Albumin 3.3 g/dL (3.4-5.0) L 09/04/23 09:35 Globulin 4.6 g/dL (2.5-4.5) H 09/04/23 09:35 Albumin/Globulin Ratio 0.7 Ratio (1.1-2.1) L 09/04/23 09:35 Amylase 66 Units/L (25-115) 09/04/23 09:35 Lipase 23 Units/L (16-77) 09/04/23 09:35 Opioid Opioid Risk Tool Age (Abdoulaye box if 16-45): No History of Preadolescent Sexual Abuse: No Total: 0 Total Score Risk Category: Low Risk Copyright: Kane ALVES predicting aberrant behaviors Discharge Plan Diagnosis Discharge Problem: Sepsis associated hypotension Discharge Plan Patient Disposition: ADMITTED INPATIENT Condition: Stable Orders to Discharge Patient Discharge Orders: Transfer (Routine); Ordered 09/04/23 Ordered By: Prakash Sinclair
[2023-09-04] MEDS: ZOFRAN INJ 4 MG VIAL IVP ONE (09:52)
[2023-09-04 09:54] VITALS: BMI 22.4
[2023-09-04 10:08] LABS: BASOPHILS % (AUTO) 0.2 % (0.2-1.0); HEMATOCRIT 41.4 % (42.0-54.0); HEMOGLOBIN 13.2 g/dL (13.5-18.0); LYMPHOCYTES # (AUTO) 1.7 X10^3/uL (1.3-2.9); LYMPHOCYTES % (AUTO) 11.5 % (21.0-51.0); MEAN CORPUSCULAR HEMOGLOBIN 28.5 pg (27.0-34.0); MEAN CORPUSCULAR VOLUME 89.1 fL (80.0-100.0); MEAN PLATELET VOLUME 10.2 fL (7.4-11.0); MONOCYTES # (AUTO) 0.7 x10^3/uL (0.3-0.8); MONOCYTES % (AUTO) 4.6 % (0.0-13.0); NEUTROPHILS # (AUTO) 12.4 x10^3/uL (2.2-4.8); NEUTROPHILS % (AUTO) 83.7 % (42.0-75.0); PLATELET COUNT 237 X10^3/uL (150.0-450.0); RED BLOOD COUNT 4.65 X10^6/uL (4.7-6.0); RED CELL DISTRIBUTION WIDTH 15.8 % (11.6-16.5); WHITE BLOOD COUNT 14.8 X10^3/uL (3.6-10.0)
--- NOTE | 2023-09-04 10:16 | RAD ---
EXAM:AP chestHISTORY:Nausea vomitingCOMPARISON:06/25/2023FINDINGS:St able normal heart size with sternal wires, clear lungs and pleural spaces.IMPRESSION:No definite interval change or acute chest abnormality identified.THIS IS AN ELECTRONICALLY VERIFIED FINAL REPORT09/04/2023 10:13 AM - Electronically signed by Alex Madden MD
[2023-09-04 10:23] LABS: ALANINE AMINOTRANSFERASE 15 Units/L (12-78); ALBUMIN 3.3 g/dL (3.4-5.0); ALKALINE PHOSPHATASE 130 Units/L (46-116); AMYLASE 66 Units/L (25-115); ASPARTATE AMINO TRANSFERASE 34 Units/L (15-37); BLOOD UREA NITROGEN 33 mg/dL (7-18); CALCIUM 9.3 mg/dL (8.5-10.1); CHLORIDE 104 mmol/L (98-107); COR CA(FOR HYPOALB) 9.9 mg/dL (8.5-10.1); CREATINE KINASE 156 Units/L (39-308); CREATININE 2.48 mg/dL (0.70-1.30); GLUCOSE 93 mg/dL (65-99); LIPASE 23 Units/L (16-77); POTASSIUM 5.3 mmol/L (3.5-5.1); SODIUM 141 mmol/L (136-145); TOTAL PROTEIN 7.9 g/dL (6.4-8.2); eGFR NON BLACK RACES 27 (>60)
[2023-09-04] MEDS ORDERED: CLEOCIN 600 MG IV PREMIX 600 MG/50 ML BAG IV ONE (10:43)
[2023-09-04] MEDS: CLEOCIN 600 MG IV PREMIX 600 MG/50 ML BAG IV STA (10:45)
--- NOTE | 2023-09-04 11:13 | EKG ---
Test Reason : bradycardia Blood Pressure : */* mmHG Vent. Rate : 43 BPM Atrial Rate : * BPM P-R Int : * ms QRS Dur : 120 ms QT Int : 520 ms P-R-T Axes : * 267 242 degrees QTc Int : 439 ms sinus bradycardia with first degree AV block baseline artifact Low voltage QRS Inferior infarct (cited on or before 25-JUN-2023) Anterolateral infarct , age undetermined Abnormal ECG When compared with ECG of 04-SEP-2023 09:32, (Unconfirmed) heart rate much slower Confirmed by Aung Maier MD ([id number]) on 09/04/2023 11:17:14 AM Referred By: Confirmed By: Aung Maier MD
[2023-09-04] MEDS: LEVOPHED 8 MG/250 ML IV *PREMIX 8 MG/250 ML PLAST..BAG IV PRN (11:35)
[2023-09-04] MEDS: LEVOPHED INJ (VIAL) ONE (11:39)
[2023-09-04] MEDS: D5W 250 ML IV 250 ML IV ONE (11:39)
[2023-09-04] MEDS: NS 1,000 ML IV 1,000 ML IV SCH (12:26)
[2023-09-04] MEDS ORDERED: ZOSYN VIAL 3.375 GRAMS IV ONE (12:39)
[2023-09-04] MEDS ORDERED: NS 100 ML IV 100 ML ONE (12:39)
[2023-09-04] MEDS: ZOSYN VIAL 3.375 GRAMS 3.375 G in NS 100 ML IV 100 ML IV ONE (12:50)
[2023-09-04] MEDS ORDERED: BUTT CREAM (COMPOUND) ONE (16:27)
[2023-09-04] MEDS: BUTT CREAM (COMPOUND) TOP PRN (16:30)
[2023-09-04 17:40] LABS: BILIRUBIN,URINE 1+ (NEGATIVE); BLOOD/HEMOGLOBIN,URINE 2+ (NEGATIVE); GLUCOSE, URINE NEGATIVE (NEGATIVE); KETONES,URINE 1+ (NEGATIVE); LEUKOCYTE ESTERASE ,URINE 1+ (NEGATIVE); NITRITES,URINE NEGATIVE (NEGATIVE); PROTEIN,URINE 2+ (NEGATIVE); UROBILINOGEN,URINE 1+ (NORMAL)
[2023-09-04] MEDS: GLUCOPHAGE XR 24-HR PO SCH (17:40)
[2023-09-04] MEDS: HEMOCYTE-PLUS PO SCH (17:41)
[2023-09-04 17:42] LABS: APPEARANCE,URINE HAZY (CLEAR); COLOR,URINE DARK YELLOW (YELLOW)
[2023-09-04 17:51] LABS: BACTERIA,URINE 1+ /HPF (NEGATIVE); SQUAMOUS EPITHELIAL CELL,UR NUMEROUS /HPF (NEGATIVE)
[2023-09-04] MEDS ORDERED: SOLU-Cortef INJ IVP SCH (18:00)
[2023-09-04] MEDS ORDERED: THIAMINE HCL INJ IVP SCH (18:00)
[2023-09-04] MEDS ORDERED: ASCORBIC ACID INJ MULTI-DOSE VIAL 3,000 MG in NS 50 ML IV 50 ML IV SCH (18:00)
--- NOTE | 2023-09-04 19:02 | EKG ---
Test Reason : elevated troponin Blood Pressure : */* mmHG Vent. Rate : 52 BPM Atrial Rate : 75 BPM P-R Int : * ms QRS Dur : 124 ms QT Int : 490 ms P-R-T Axes : 60 -72 56 degrees QTc Int : 455 ms Sinus rhythm with first degree AV block with premature supraventricular complexes Left axis deviation poss inferior mi-seen before Abnormal ECG ST abnormality worse-consider ischemia Confirmed by Aung Maier MD ([id number]) on 09/05/2023 7:22:32 AM Referred By: Confirmed By: Aung Maier MD
[2023-09-04] MEDS: LIPITOR TAB 40 MG PO SCH (20:13)
[2023-09-04] MEDS: XARELTO PO SCH (20:13)
[2023-09-04] MEDS: SOLU-Cortef INJ IVP SCH (20:14)
[2023-09-04] MEDS: THIAMINE HCL INJ IVP SCH (20:15)
[2023-09-04] MEDS: ASCORBIC ACID INJ MULTI-DOSE VIAL 3,000 MG in NS 50 ML IV 50 ML IV SCH (20:15)
[2023-09-04] MEDS ORDERED: NS 250 ML IV 250 ML IV PRN (20:40)
[2023-09-04] MEDS: LANTUS SC SCH (21:00)
[2023-09-04] MEDS: CLEOCIN 600 MG IV PREMIX 600 MG/50 ML BAG IV SCH (21:26)
[2023-09-04 21:59] VITALS: TEMP 98
[2023-09-04] MEDS ORDERED: ZOSYN VIAL 3.375 GRAMS 3.375 G in NS 100 ML IV 100 ML IV SCH (22:00)
[2023-09-04 22:01] VITALS: O2SAT 99
[2023-09-04 22:02] VITALS: PULSE 55
[2023-09-04 22:03] VITALS: BP 104/52; RESP 52
--- NOTE | 2023-09-04 22:27 | NOTE.SOAP ---
Soap Note Note for Day of Date of Exam: 09/04/23 Subjective Data Subjective Data: Patient presented to the ER today with a chief complaint of vomiting and nausea. He was planned to have a surgical debridement of his foot with a tibial osteotomy. Patient has no complaints regarding his foot, he did have serous drainage which was cultured in Dr. Boucher's office this week that showed no growth. 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 No signs of acute infection including crepitus, purulence, malodor or erythema Faint PT and DP pulses Gross epicritic and protective sensation intact Assessment Assessment: 73 year old male with PAD that is septic secondary to other source w Plan Plan: Patient was seen in the emergency room, poor prognosis. Patient too unstable for surgical intervention at this time. Based on clinical findings and previous cultures that showed no growth, the foot is likely not the source of the infection. Foot will likely have to be debrided while patient is in the hospital once stable. We will monitor his progress early and plan to do surgical debridement if stable.
[2023-09-05] MEDS ORDERED: COLACE CAP 100 MG PO SCH (09:00)
[2023-09-05] MEDS ORDERED: PLAVIX PO SCH (09:00)
== END 2023-09-04 22:00 | disposition short-term general hospital (02) | DRG 872 ==
LOC: ER 09:30 → ICU 14:00
PROVIDERS: ADMIT Surgery; ATTEND Obstetrics & Gynecology Obstetrics
DX: R11.2 Nausea with vomiting, unspecified; R41.82 Altered mental status, unspecified; Z86.73 Personal history of transient ischemic attack (TIA), and cerebral infarction without residual deficits; R00.1 Bradycardia, unspecified; I10 Essential (primary) hypertension; Z98.890 Other specified postprocedural states; R77.8 Other specified abnormalities of plasma proteins; R94.31 Abnormal electrocardiogram [ECG] [EKG]; A41.89 Other specified sepsis; I25.10 Atherosclerotic heart disease of native coronary artery without angina pectoris; I95.89 Other hypotension; L89.610 Pressure ulcer of right heel, unstageable; E78.5 Hyperlipidemia, unspecified; R53.1 Weakness; L89.159 Pressure ulcer of sacral region, unspecified stage; E11.65 Type 2 diabetes mellitus with hyperglycemia

== ENCOUNTER 2024-11-21 08:54 | Inpatient (IN) ==
--- NOTE | 2024-11-21 09:42 | DR.EXTPAIN ---
HPI Time seen Time Seen by Provider: 11/21/24 09:15 PCP Primary Care Physician: GLORIA Complaint/Symptoms Chief Complaint:: Patient states that he is here "for my foot" he denies pain in his foot. his friend states that he is here to see if there is circulation in his foot. denies having an appontment for today for that to be checked. COVID-19 Coronavirus risk:travel/contact w/high risk person: No Has patient experienced Coronavirus symptoms: No Source History Provided: Patient and Friend Mode of arrival Mode of Arrival: Wheelchair Timing Onset of Chief Complaint: 11/21/24 PMH PMH Past Medical History: Yes Past Medical History: Coronary Artery Disease, CVA, Diabetes, Dyslipidemia and Hypertension Past Surgical History: Yes Surgical History: CABG/Valve Surgery and Other Past Surgical History Comment: right partial foot amputation Family History History of Family Medical Conditions: Yes Family Medical History: Diabetes Mellitus, [place], Coronary Artery Disease and Hypertension Social History Type of Tobacco Use: None Alcohol Use: None Do you use any recreational Drugs:: No Lives With: Spouse Lives Where: Home Travel Risk Coronavirus risk:travel/contact w/high risk person: No Has patient experienced Coronavirus symptoms: No Infectious screening Have you traveled outside the country in the last 6 months?: No Isolation: Standard PE Vital Signs Vitals: Vital Signs Temperature 98.2 F Pulse Rate 97 Pulse Rate 81 Pulse Rate 73 Pulse Rate 81 Respiratory Rate 20 Blood Pressure 107/65 Blood Pressure 124/64 O2 Sat by Pulse Oximetry 92 O2 Sat by Pulse Oximetry 70 O2 Sat by Pulse Oximetry 97 O2 Sat by Pulse Oximetry 100 O2 Sat by Pulse Oximetry 100 ROR Labs Reviewed 11/21/24 09:10 11/21/24 09:10 Laboratory: WBC 20.6 X10^3/uL (3.6-10.0) H 11/21/24 09:10 RBC 3.57 X10^6/uL (4.7-6.0) L 11/21/24 09:10 Hgb 9.2 g/dL (13.5-18.0) L 11/21/24 09:10 Hct 28.0 % (42.0-54.0) L 11/21/24 09:10 MCV 78.5 fL (80.0-100.0) L 11/21/24 09:10 MCH 25.7 pg (27.0-34.0) L 11/21/24 09:10 MCHC 32.8 g/dL (33.0-35.0) L 11/21/24 09:10 RDW 15.1 % (11.6-16.5) 11/21/24 09:10 Plt Count 237 X10^3/uL (150.0-450.0) 11/21/24 09:10 MPV 11.6 fL (7.4-11.0) H 11/21/24 09:10 Neut % (Auto) 93.2 % (42.0-75.0) H 11/21/24 09:10 Lymph % (Auto) 3.7 % (21.0-51.0) L 11/21/24 09:10 [place] % (Auto) 2.9 % (0.0-13.0) 11/21/24 09:10 Eos % (Auto) 0.0 % (0.9-2.9) L 11/21/24 09:10 Baso % (Auto) 0.2 % (0.2-1.0) 11/21/24 09:10 Neut # (Auto) 19.2 x10^3/uL (2.2-4.8) H 11/21/24 09:10 Lymph # (Auto) 0.8 X10^3/uL (1.3-2.9) L 11/21/24 09:10 [place] # (Auto) 0.6 x10^3/uL (0.3-0.8) 11/21/24 09:10 Eos # (Auto) 0.0 x10^3/uL (0.0-0.2) 11/21/24 09:10 Baso # (Auto) 0.0 X10^3/uL (0.0-0.1) 11/21/24 09:10 Absolute Nucleated RBC 0.0 /100WBC 11/21/24 09:10 Sodium 133 mmol/L (136-145) L 11/21/24 09:10 Corrected Sodium 137 mmol/L (136-145) 11/21/24 09:10 Potassium 2.5 mmol/L (3.5-5.1) L* 11/21/24 09:10 Chloride 97 mmol/L (98-107) L 11/21/24 09:10 Carbon Dioxide 21.6 mmol/L (21-32) 11/21/24 09:10 BUN 25 mg/dL (7-18) H 11/21/24 09:10 Creatinine 1.89 mg/dL (0.70-1.30) H 11/21/24 09:10 Est GFR (MDRD) Af Amer 45 (>60) L 11/21/24 09:10 Est GFR (MDRD) Non-Af 37 (>60) L 11/21/24 09:10 Glucose 274 mg/dL (65-99) H 11/21/24 09:10 Lactic Acid 7.4 mmol/L (0.4-2.0) H* 11/21/24 09:10 Calcium 9.0 mg/dL (8.5-10.1) 11/21/24 09:10 Corrected Calcium 10.1 mg/dL (8.5-10.1) 11/21/24 09:10 Total Bilirubin 0.80 mg/dL (0.2-1.0) 11/21/24 09:10 AST 75 Units/L (15-37) H 11/21/24 09:10 ALT 46 Units/L (12-78) 11/21/24 09:10 Alkaline Phosphatase 148 Units/L (46-116) H 11/21/24 09:10 Total Protein 8.0 g/dL (6.4-8.2) 11/21/24 09:10 Albumin 2.6 g/dL (3.4-5.0) L 11/21/24 09:10 Globulin 5.4 g/dL (2.5-4.5) H 11/21/24 09:10 Albumin/Globulin Ratio 0.5 Ratio (1.1-2.1) L 11/21/24 09:10 Opioid Opioid Risk Tool Age (Abdoulaye box if 16-45): No History of Preadolescent Sexual Abuse: No Total: 0 Total Score Risk Category: Low Risk Copyright: Kane ALVES predicting aberrant behaviors Discharge Plan Discharge Plan Patient Disposition: 01 HOME, SELF-CARE Condition: Stable Orders to Discharge Patient Discharge Orders: Transfer (Routine); Ordered 11/21/24 Ordered By: SHANNON PUENTE
[2024-11-21 09:49] LABS: ALBUMIN 2.6 g/dL (3.4-5.0); CARBON DIOXIDE 21.6 mmol/L (21-32); COR CA(FOR HYPOALB) 10.1 mg/dL (8.5-10.1); CREATININE 1.89 mg/dL (0.70-1.30)
[2024-11-21 09:55] LABS: POTASSIUM 2.5 mmol/L (3.5-5.1)
[2024-11-21] MEDS ORDERED: POTASSIUM CHLORIDE LIQ ONE (09:57)
[2024-11-21 09:58] LABS: HEMOGLOBIN 9.2 g/dL (13.5-18.0)
[2024-11-21] MEDS: POTASSIUM CHLORIDE LIQ PO ONE (09:58)
[2024-11-21] MEDS ORDERED: PRECEDEX INJ VIAL ONE (09:59)
[2024-11-21] MEDS ORDERED: KETAMINE HCL ONE (09:59)
[2024-11-21] MEDS ORDERED: NEO-SYNEPHRINE INJ ONE (09:59)
[2024-11-21 10:02] LABS: BASOPHILS % (AUTO) 0.2 % (0.2-1.0); LYMPHOCYTES # (AUTO) 0.8 X10^3/uL (1.3-2.9); LYMPHOCYTES % (AUTO) 3.7 % (21.0-51.0); MEAN CORPUSCULAR HEMOGLOBIN 25.7 pg (27.0-34.0); MEAN CORPUSCULAR HGB CONC 32.8 g/dL (33.0-35.0); MEAN CORPUSCULAR VOLUME 78.5 fL (80.0-100.0); MEAN PLATELET VOLUME 11.6 fL (7.4-11.0); MONOCYTES # (AUTO) 0.6 x10^3/uL (0.3-0.8); MONOCYTES % (AUTO) 2.9 % (0.0-13.0); NEUTROPHILS # (AUTO) 19.2 x10^3/uL (2.2-4.8); NEUTROPHILS % (AUTO) 93.2 % (42.0-75.0); PLATELET COUNT 237 X10^3/uL (150.0-450.0); RED BLOOD COUNT 3.57 X10^6/uL (4.7-6.0); RED CELL DISTRIBUTION WIDTH 15.1 % (11.6-16.5); WHITE BLOOD COUNT 20.6 X10^3/uL (3.6-10.0)
[2024-11-21] MEDS ORDERED: NS 1,000 ML IV 1,000 ML ONE (10:23)
[2024-11-21] MEDS: NS 1,000 ML IV 1,000 ML IV ONE (10:26)
[2024-11-21 10:32] LABS: BAND NEUTROPHILS % 11 % (0-10)
[2024-11-21 10:33] LABS: PLATELET MORPHOLOGY COMMENT NORMAL (NORMAL)
[2024-11-21] MEDS ORDERED: DILAUDID INJ IVP PRN (10:54)
[2024-11-21] MEDS ORDERED: CONSULT PHARMACY - POTASSIUM & MAGNESIUM XX SCH (11:00)
[2024-11-21] MEDS ORDERED: NS 1,000 ML IV 1,000 ML IV SCH (11:24)
[2024-11-21] MEDS ORDERED: POTASSIUM CHLORIDE INJ 40 MEQ VIAL 60 MEQ, MAGNESIUM SULFATE 50% INJ VIAL 2 G in NS 500... IV ONE (12:00)
[2024-11-21] MEDS ORDERED: NS 250 ML IV 25 ML IV PRN (12:15)
[2024-11-21] MEDS: POTASSIUM CHLORIDE INJ 40 MEQ VIAL 60 MEQ, MAGNESIUM SULFATE 50% INJ VIAL 2 G in NS 500... IV ONE (12:37)
[2024-11-21] MEDS: LOVENOX INJ 80 MG SYR SC SCH (12:37)
[2024-11-21] MEDS: LR 1,000 ML IV 1,000 ML IV SCH (12:37)
[2024-11-21] MEDS: NovoLIN R (or HumuLIN R) SUBCUT PRN (12:38)
[2024-11-21] MEDS: ZOSYN VIAL 3.375 GRAMS 3.375 G in NS 100 ML IV 100 ML IV SCH (14:37)
[2024-11-21 14:45] VITALS: BMI 21.7
--- NOTE | 2024-11-21 14:55 | CT ---
EXAM: CTA AORTA WITH RUNOFF HISTORY: LOWER LEFT LEG/ FOOT PAIN, pt stated no stomach pain; pt was told to hold still multiple time. he decided to move his lower legs during the last half of the scan. COMPARISON: None TECHNIQUE: CTA of the abdomen and pelvis with bilateral lower extremity runoff obtained without and with IV contrast. 3D reconstructions obtained and reviewed. Dose reduction techniques including Automated Exposure Control (AEC) and adjustment of mA and kV were utilized. FINDINGS: The visualized portions of the lower thorax demonstrate no acute process. Post sternotomy and post CABG changes. Scarring in the lower lungs. No acute osseous abnormality. Multilevel degenerative changes in the visualized spine. Grade 2 anterolisthesis of L5 on S1 with bilateral pars defects at L5. right hip arthroplasty hardware. Loculated free gas in the left anterior tibialis musculature and in the dorsal left foot. No evidence of aortic aneurysm or dissection. The celiac artery, SMA, bilateral renal arteries, and DAVID appear patent with multifocal atherosclerotic disease. The bilateral common, internal, and external iliac arteries are patent with multifocal atherosclerotic disease. The right common femoral, superficial femoral, and deep femoral arteries are patent with multifocal atherosclerotic disease. The right popliteal artery is patent. The more distal right lower extremity vasculature is not adequately evaluated due to motion artifact. The right posterior tibial artery at least appears patent to the right foot. The left common femoral, superficial femoral, and deep femoral arteries are patent with multifocal atherosclerotic disease. The left popliteal artery is patent. The left posterior tibial and peroneal arteries are patent to the left foot. The liver, gallbladder, spleen, pancreas, bilateral adrenal glands, and bilateral kidneys demonstrate no acute process. Nonspecific 1.2 cm hypoattenuating lesion in the region of the pancreatic tail. No evidence of bowel obstruction. The appendix is unremarkable. Large amount of stool in the rectum. Large amount of gas throughout the more proximal colon. The bladder is unremarkable. No free air or fluid.. IMPRESSION: Patent two-vessel runoff to the left foot. Subcutaneous free gas in the left anterior tibialis musculature and in the dorsal left foot. Apparent one-vessel runoff to the right foot. Large amount of stool in the rectum. THIS IS AN ELECTRONICALLY VERIFIED FINAL REPORT 11/21/2024 2:51 PM - Electronically signed by Anselmo Tenorio MD
[2024-11-21] MEDS ORDERED: SNACK - Diabetic Appropriate PO SCH (20:00)
[2024-11-21] MEDS: LIPITOR TAB 20 MG PO SCH (21:08)
[2024-11-21] MEDS: LOPRESSOR TAB 25 MG PO SCH (21:08)
[2024-11-22 05:54] LABS: BASOPHILS % (AUTO) 0.2 % (0.2-1.0); EOSINOPHILS % (AUTO) 0.3 % (0.9-2.9); HEMOGLOBIN 8.3 g/dL (13.5-18.0); LYMPHOCYTES % (AUTO) 6.6 % (21.0-51.0); MEAN CORPUSCULAR HEMOGLOBIN 25.8 pg (27.0-34.0); MEAN PLATELET VOLUME 11.1 fL (7.4-11.0); MONOCYTES # (AUTO) 0.5 x10^3/uL (0.3-0.8); MONOCYTES % (AUTO) 3.4 % (0.0-13.0); NEUTROPHILS # (AUTO) 13.8 x10^3/uL (2.2-4.8); NEUTROPHILS % (AUTO) 89.5 % (42.0-75.0); PLATELET COUNT 184 X10^3/uL (150.0-450.0); RED BLOOD COUNT 3.21 X10^6/uL (4.7-6.0); RED CELL DISTRIBUTION WIDTH 15.4 % (11.6-16.5); WHITE BLOOD COUNT 15.4 X10^3/uL (3.6-10.0)
[2024-11-22 06:02] LABS: CALCIUM 8.6 mg/dL (8.5-10.1); CARBON DIOXIDE 27.3 mmol/L (21-32); CREATININE 1.48 mg/dL (0.70-1.30)
[2024-11-22 06:03] LABS: POTASSIUM 2.2 mmol/L (3.5-5.1)
[2024-11-22] MEDS ORDERED: CONSULT PHARMACY - POTASSIUM & MAGNESIUM XX SCH (07:00)
[2024-11-22] MEDS ORDERED: ZESTRIL TAB 20 MG ONE (08:35)
[2024-11-22] MEDS: ZESTRIL TAB 20 MG PO SCH (09:15)
[2024-11-22] MEDS: ZyrTEC TAB 10 MG PO SCH (09:15)
[2024-11-22] MEDS: NORVASC TAB 5 MG PO SCH (09:16)
[2024-11-22] MEDS: ASPIRIN EC 81 MG PO SCH (09:16)
[2024-11-22] MEDS: NS + KCL 40 MEQ/L 1,000 ML IV SCH (09:19)
--- NOTE | 2024-11-22 15:15 | DR.CONSULT ---
CONSULT Consultation for Day of: Date: 11/22/24 Chief Complaint Chief Complaint: Critical limb ischemia with limb threatening infection to left foot/ankle/leg Allergies Allergies Allergy/AdvReac Type Severity Reaction Status Date / Time No Known Allergies Allergy Verified 11/21/24 09:09 History of Present Illness History of Present Illness: This is a 74 year old M who presented to the ER recently with critical limb ischemia and limb threatening infection to the left foot. Patient is unsure how the infection started on the left foot. He thinks he may have scratched it. His WBC is 15.4. K is 2.2, pharmacy has him on 40 of K per 1L of fluid. Hes had at least 1 L today so far. I am getting a recheck of it tonight at 8 pm. He currently denying any nasuea, vomiting, chills, sob. Past Medical History Past Medical History: Coronary Artery Disease, CVA, Diabetes, Dyslipidemia and Hypertension Past Surgical History Surgical History: CABG/Valve Surgery Family History Family Medical History: Hypertension Social History Type of Tobacco Use: None Alcohol Use: None Drug Use: None Medications Home Medications: No Known Allergies Allergy (Verified 11/21/24 09:09) CONTINUE taking the following medications potassium chloride 20 mEq tablet,extended release 20 meq PO BID 11/21/24 [History] Review of Systems Constitutional: See HPI Physical Exam Vital Signs: Vital Signs Temperature 97.3 F Temperature 97.7 F Pulse Rate [Left Brachial] 55 Pulse Rate [Left Brachial] 60 Respiratory Rate 18 Respiratory Rate 16 Blood Pressure [Left Arm] 113/56 Blood Pressure [Left Arm] 102/59 O2 Sat by Pulse Oximetry 98 O2 Sat by Pulse Oximetry 98 Oriented: Time, Person and Place Palpation: Other (Left foot: DP and PT nonpalpable. CFT WNL To all digits. Erythema and cellulitis to eschar noted at midfoot. ) Skin: Wound (Left foot: Eschar to midfoot measuring around 6 cm circumferential with surrounding erythema and cellulitis that extends to level of ankle. There is fluctuance underneath and i can feel popping crepitus. ) Musculoskeletal: Foot (Left foot: MSK exam deferred due to infection currently. Right foot: Has well healed TMA) Plan (1) Atherosclerosis of [place] arteries of extremities with rest pain, left leg: Status: Acute (2) Type 2 diabetes mellitus without complications: Status: Acute (3) Essential (primary) hypertension: Status: Acute (4) Chronic ischemic heart disease, unspecified: Status: Acute (5) History of CVA (cerebrovascular accident): Status: Acute (6) Cellulitis of left foot: Status: Acute (7) Necrotizing fasciitis: Status: Acute Plan: - Patient has severe limb threatening infection to the left foot/ankle that extendings up the leg per the CTA. He has critical limb ischemia to the left leg as well. Ajith is aware and is seeing the patient but is taking him on for intervention. The infection trumps the revascularization currently. - I discussed this all with the patient this afternoon he was understanding and wants to save his leg. - Consent obtained. - WBC 15.4. K 2.2. Running 40ml at 1L. Recheck tonight. - NPO after midnight ordered. - Hold morning Lovenox. - To surgery for InD tomorrow morning. Will need 3L saline with 3gm vanc and stop glock, foot set, simplex 1.2 gn tobra and 1 gm vanc, easy whip suture.
--- NOTE | 2024-11-22 17:03 | DR.H&P ---
H&P History & Physical for Day of: H&P Date: 11/21/24 Chief Complaint Chief Complaint: Gangrenous changes left dorsal foot History of Present Illness History of Present Illness: This patient is a 74-year-old male with significant history of peripheral vascular disease who has had acute ischemia in the right foot in the past requiring acute arterial intervention in the past and subsequent had a right transmetatarsal amputation which healed. Patient had been lost to follow-up and now presents with gangrenous changes of the left foot dorsal surface over an area approximately 6 cm in diameter with surrounding redness. Patient has history of diabetes, peripheral vascular disease, coronary disease, hypertension ,hyperlipidemia and stroke. Patient on observation for IV antibiotics, CT angiogram and possible arterial intervention of the right leg. Patient will need debridement of this area as well. He will be seen in consultation by Dr. Boucher of podiatry. Has had CABG in the past. Patient is a non-smoker . Past Medical History Past Medical History: Coronary Artery Disease, CVA, Diabetes, Dyslipidemia and Hypertension Past Surgical History Surgical History: CABG/Valve Surgery Family History Family Medical History: Hypertension Social History Type of Tobacco Use: None Alcohol Use: None Drug Use: None Medications Home Medications: Home Medications Medication Instructions Recorded Confirmed Type amlodipine 5 mg tablet 5 mg PO QDAY 06/24/23 History atorvastatin 40 mg tablet 20 mg PO QHS 06/24/23 History clopidogrel 75 mg tablet 75 mg PO QDAY 06/24/2311/21 History lisinopril 40 mg tablet 20 mg PO QDAY 06/24/2311/21 History metformin 1,000 mg tablet 1,000 mg PO BIDWMEAL 4 11/21/24 History metoprolol tartrate 25 mg tablet 25 mg PO BID 07/22/23 11/21/24 History aspirin 81 mg chewable tablet 81 mg PO QDAY 09/04/23 0 11/21/24 History carboxymethylcellulose sodium 1 % 4 drp ophthalmic (ey e) BID 10/28/23 11/21/24 History eye liquid gel drops potassium chloride 20 mEq 20 meq PO BID 11/21/2411/21 History tablet,extended release Allergies Allergies Allergy/AdvReac Type Severity Reaction Status Date / Time No Known Allergies Allergy Verified 11/21/24 09:09 Labs 11/22/24 05:30 11/22/24 05:30 Labs: Laboratory WBC 20.6 X10^3/uL (3.6-10.0) H 11/21/24 09:10 RBC 3.57 X10^6/uL (4.7-6.0) L 11/21/24 09:10 Hgb 9.2 g/dL (13.5-18.0) L 11/21/24 09:10 Hct 28.0 % (42.0-54.0) L 11/21/24 09:10 MCV 78.5 fL (80.0-100.0) L 11/21/24 09:10 MCH 25.7 pg (27.0-34.0) L 11/21/24 09:10 MCHC 32.8 g/dL (33.0-35.0) L 11/21/24 09:10 RDW 15.1 % (11.6-16.5) 11/21/24 09:10 Plt Count 237 X10^3/uL (150.0-450.0) 11/21/24 09:10 Plt Count Comment Adequate (ADEQUATE) 11/21/24 09:10 MPV 11.6 fL (7.4-11.0) H 11/21/24 09:10 Neut % (Auto) 93.2 % (42.0-75.0) H 11/21/24 09:10 Lymph % (Auto) 3.7 % (21.0-51.0) L 11/21/24 09:10 [place] % (Auto) 2.9 % (0.0-13.0) 11/21/24 09:10 Eos % (Auto) 0.0 % (0.9-2.9) L 11/21/24 09:10 Baso % (Auto) 0.2 % (0.2-1.0) 11/21/24 09:10 Neut # (Auto) 19.2 x10^3/uL (2.2-4.8) H 11/21/24 09:10 Lymph # (Auto) 0.8 X10^3/uL (1.3-2.9) L 11/21/24 09:10 [place] # (Auto) 0.6 x10^3/uL (0.3-0.8) 11/21/24 09:10 Eos # (Auto) 0.0 x10^3/uL (0.0-0.2) 11/21/24 09:10 Baso # (Auto) 0.0 X10^3/uL (0.0-0.1) 11/21/24 09:10 Absolute Nucleated RBC 0.0 /100WBC 11/21/24 09:10 Total Counted 100 11/21/24 09:10 Neutrophils % (Manual) 82 % (39-76) H 11/21/24 09:10 Band Neutrophils % 11 % (0-10) H 11/21/24 09:10 Lymphocytes % (Manual) 4 % (13-43) L 11/21/24 09:10 Monocytes % (Manual) 3 % (4-9) L 11/21/24 09:10 Plt Morphology Comment Normal (NORMAL) 11/21/24 09:10 RBC Morphology Normal (NORMAL) 11/21/24 09:10 Sodium 133 mmol/L (136-145) L 11/21/24 09:10 Corrected Sodium 137 mmol/L (136-145) 11/21/24 09:10 Potassium 2.5 mmol/L (3.5-5.1) L* 11/21/24 09:10 Chloride 97 mmol/L (98-107) L 11/21/24 09:10 Carbon Dioxide 21.6 mmol/L (21-32) 11/21/24 09:10 BUN 25 mg/dL (7-18) H 11/21/24 09:10 Creatinine 1.89 mg/dL (0.70-1.30) H 11/21/24 09:10 Est GFR (MDRD) Af Amer 45 (>60) L 11/21/24 09:10 Est GFR (MDRD) Non-Af 37 (>60) L 11/21/24 09:10 Glucose 274 mg/dL (65-99) H 11/21/24 09:10 POC Glucose (mg/dL) 192 mg/dL (65-99) H 11/21/24 16:43 Lactic Acid 4.2 mmol/L (0.4-2.0) H* 11/21/24 14:43 Calcium 9.0 mg/dL (8.5-10.1) 11/21/24 09:10 Corrected Calcium 10.1 mg/dL (8.5-10.1) 11/21/24 09:10 Magnesium 1.9 mg/dL (2.0-2.9) L 11/21/24 09:10 Total Bilirubin 0.80 mg/dL (0.2-1.0) 11/21/24 09:10 AST 75 Units/L (15-37) H 11/21/24 09:10 ALT 46 Units/L (12-78) 11/21/24 09:10 Alkaline Phosphatase 148 Units/L (46-116) H 11/21/24 09:10 Total Protein 8.0 g/dL (6.4-8.2) 11/21/24 09:10 Albumin 2.6 g/dL (3.4-5.0) L 11/21/24 09:10 Globulin 5.4 g/dL (2.5-4.5) H 11/21/24 09:10 Albumin/Globulin Ratio 0.5 Ratio (1.1-2.1) L 11/21/24 09:10 CT angiogram performed showing multifocal atherosclerotic disease of the right femoral artery. Is difficult to evaluate the right distal vascular due to motion artifact right. Anterior tibial artery does appear to be patent of the right foot. The left femoral artery also shows multifocal atherosclerotic disease with two-vessel runoff to the left leg. There is some air noted in the left anterior tibial compartment which is as expected. Review of Systems Constitutional: See HPI Eyes: No Symptoms Reported ENT: No Symptoms Reported Respiratory: No Symptoms Reported Cardiovascular: No Symptoms Reported Gastrointestinal: No Symptoms Reported Genitourinary: No Symptoms Reported Musculoskeletal: No Symptoms Reported Skin: No Symptoms Reported Neurological: No Symptoms Reported Physical Exam Vital Signs: Vital Signs Temperature 97.4 F Pulse Rate [Left Brachial] 77 Respiratory Rate 20 Blood Pressure [Left Arm] 113/61 O2 Sat by Pulse Oximetry 99 Oriented: Normal, Time, Person and Place Eyes: Normal Ear: Normal Nose: Normal Throat: Normal Respiratory: Clear Throughout Cardiovascular: Normal : Normal Auscultation: Bowel Sounds: Normal Palpation: Normal Tenderness: Normal Skin: Wound (Dry gangrenous changes over the dorsal aspect of the left foot with surrounding redness. No palpable distal pulses at the ankle left side. Healed right transmetatarsal amputation) Psychiatric: Normal Mood Description: Anxious Affect: Anxious Speech Pattern: Clear and Appropriate Assessment/Plan (1) Atherosclerosis of [place] arteries of extremities with rest pain, left leg: Status: Acute Plan: Plan on table arteriogram of the left leg with appropriate arterial intervention 2024 followed by debridement left foot by Dr. Boucher (2) Type 2 diabetes mellitus without complications: Status: Acute Plan: Sliding scale insulin (3) Essential (primary) hypertension: Status: Acute Plan: Home medication (4) Chronic ischemic heart disease, unspecified: Status: Acute Plan: Home medications (5) History of CVA (cerebrovascular accident): Status: Acute Plan: Observed (6) Cellulitis of left foot: Status: Acute Plan: IV [place] Review H&P Reviewed: Yes Patient was examined?: Yes
--- NOTE | 2024-11-22 17:06 | NOTE.SOAP ---
Soap Note Note for Day of Date of Exam: 11/22/24 Subjective Data Subjective Data: Patient afebrile hemodynamically stable. Nurses noted that he has a positive blood culture. Final identification not available as yet. On IV antibiotics currently. Objective Data Temperature: 98.6 F Pulse Rate: 57 Respiratory Rate: 16 Blood Pressure: 126/58 O2 Sat by Pulse Oximetry: 97 Objective Data: Gangrenous changes dorsal left foot. Redness is improved. Assessment Assessment: Ischemic left foot with gangrenous changes of the dorsal foot. Plan Plan: Discussed with Dr. Boucher by phone. We will have a change of plan and plan debridement of the foot tomorrow and plan revascularization the following day.
[2024-11-22] MEDS: KLOR-CON 10 MEQ TAB PO STA (21:22)
[2024-11-23 06:14] LABS: ALANINE AMINOTRANSFERASE 29 Units/L (12-78); ALBUMIN 2.1 g/dL (3.4-5.0); ALKALINE PHOSPHATASE 112 Units/L (46-116); ASPARTATE AMINO TRANSFERASE 23 Units/L (15-37); BLOOD UREA NITROGEN 23 mg/dL (7-18); CARBON DIOXIDE 22.9 mmol/L (21-32); CHLORIDE 107 mmol/L (98-107); COR CA(FOR HYPOALB) 9.5 mg/dL (8.5-10.1); COR NA(FOR HYPERGLY) 141 mmol/L (136-145); GLUCOSE 149 mg/dL (65-99); SODIUM 140 mmol/L (136-145); TOTAL PROTEIN 7.9 g/dL (6.4-8.2); eGFR NON BLACK RACES 52 (>60)
[2024-11-23 06:20] LABS: POTASSIUM 2.6 mmol/L (3.5-5.1)
[2024-11-23 06:27] LABS: LYMPHOCYTES # (AUTO) 0.7 X10^3/uL (1.3-2.9)
[2024-11-23 07:13] LABS: BASOPHILS # (AUTO) 0.1 X10^3/uL (0.0-0.1); BASOPHILS % (AUTO) 0.6 % (0.2-1.0); EOSINOPHILS % (AUTO) 0.1 % (0.9-2.9); HEMATOCRIT 23.8 % (42.0-54.0); HEMOGLOBIN 7.7 g/dL (13.5-18.0); LYMPHOCYTES % (AUTO) 5.7 % (21.0-51.0); MEAN CORPUSCULAR HEMOGLOBIN 25.3 pg (27.0-34.0); MEAN CORPUSCULAR HGB CONC 32.6 g/dL (33.0-35.0); MEAN CORPUSCULAR VOLUME 77.6 fL (80.0-100.0); MEAN PLATELET VOLUME 10.8 fL (7.4-11.0); MONOCYTES # (AUTO) 0.5 x10^3/uL (0.3-0.8); NEUTROPHILS # (AUTO) 11.7 x10^3/uL (2.2-4.8); NEUTROPHILS % (AUTO) 89.6 % (42.0-75.0); PLATELET COUNT 185 X10^3/uL (150.0-450.0); RED BLOOD COUNT 3.06 X10^6/uL (4.7-6.0); RED CELL DISTRIBUTION WIDTH 15.6 % (11.6-16.5)
[2024-11-23] MEDS: NS 1,000 ML IV 0 ML ONE (07:27)
[2024-11-23] MEDS: NS 1,000 ML IV 1,000 ML ONE (07:38)
[2024-11-23] MEDS: DIPRIVAN VIAL 20 ML ONE (08:10)
[2024-11-23] MEDS: VERSED ONE (08:41)
[2024-11-23] MEDS: BETADINE SOLN ONE (08:41)
[2024-11-23] MEDS: MARCAINE 0.25% INJ ONE (08:45)
[2024-11-23] MEDS: TOBRAMYCIN SULFATE ONE (08:55)
[2024-11-23] MEDS: VANCOMYCIN HCL ONE (08:55)
[2024-11-23] MEDS: EPHEDRINE SULFATE INJ ONE (09:12)
[2024-11-23] MEDS: K-DUR TAB 20 MEQ PO SCH (10:14)
[2024-11-23] MEDS: NS 250 ML IV 250 ML IV ONE (15:48)
[2024-11-23] MEDS: LOVENOX INJ 80 MG SYR SC SCH (21:27)
[2024-11-24] MEDS: HIBICLENS WASH EXT ONE (05:30)
[2024-11-24 05:45] LABS: BASOPHILS % (AUTO) 0.2 % (0.2-1.0); EOSINOPHILS % (AUTO) 0.3 % (0.9-2.9); HEMATOCRIT 21.3 % (42.0-54.0); HEMOGLOBIN 7.1 g/dL (13.5-18.0); LYMPHOCYTES % (AUTO) 9.5 % (21.0-51.0); MEAN CORPUSCULAR HGB CONC 33.4 g/dL (33.0-35.0); MEAN CORPUSCULAR VOLUME 77.9 fL (80.0-100.0); MEAN PLATELET VOLUME 10.9 fL (7.4-11.0); MONOCYTES # (AUTO) 0.4 x10^3/uL (0.3-0.8); MONOCYTES % (AUTO) 3.7 % (0.0-13.0); NEUTROPHILS # (AUTO) 9.4 x10^3/uL (2.2-4.8); NEUTROPHILS % (AUTO) 86.3 % (42.0-75.0); PLATELET COUNT 169 X10^3/uL (150.0-450.0); RED BLOOD COUNT 2.73 X10^6/uL (4.7-6.0); RED CELL DISTRIBUTION WIDTH 15.5 % (11.6-16.5); WHITE BLOOD COUNT 10.9 X10^3/uL (3.6-10.0)
[2024-11-24 05:55] LABS: ALANINE AMINOTRANSFERASE 22 Units/L (12-78); ALBUMIN 1.9 g/dL (3.4-5.0); ALKALINE PHOSPHATASE 98 Units/L (46-116); ASPARTATE AMINO TRANSFERASE 14 Units/L (15-37); BLOOD UREA NITROGEN 15 mg/dL (7-18); CALCIUM 8.1 mg/dL (8.5-10.1); CARBON DIOXIDE 21.7 mmol/L (21-32); CHLORIDE 108 mmol/L (98-107); COR CA(FOR HYPOALB) 9.8 mg/dL (8.5-10.1); COR NA(FOR HYPERGLY) 143 mmol/L (136-145); CREATININE 1.22 mg/dL (0.70-1.30); GLUCOSE 180 mg/dL (65-99); MAGNESIUM 1.8 mg/dL (2.0-2.9); SODIUM 141 mmol/L (136-145); TOTAL PROTEIN 7.4 g/dL (6.4-8.2); eGFR NON BLACK RACES > 60 (>60)
[2024-11-24 05:56] LABS: POTASSIUM 2.7 mmol/L (3.5-5.1)
[2024-11-24] MEDS: NS 1,000 ML IV 1,000 ML ONE (07:30)
[2024-11-24] MEDS: ROBINUL ONE (07:50)
[2024-11-24] MEDS: VERSED ONE (07:50)
[2024-11-24] MEDS: PEPCID 20 MG VIAL ONE (07:50)
[2024-11-24] MEDS: DIPRIVAN VIAL 20 ML ONE ×2 (07:50→09:08)
[2024-11-24] MEDS: FENTANYL VIAL INJ 100 mcg ONE (07:50)
[2024-11-24] MEDS: ZOFRAN INJ 4 MG VIAL ONE (07:50)
--- NOTE | 2024-11-24 08:03 | NOTE.SOAP ---
Soap Note Note for Day of Date of Exam: 11/23/24 Subjective Data Subjective Data: Patient admitted with ischemic leg with wound over the dorsum of the left foot. Positive blood cultures. Current on IV antibiotics. Plan for debridement by podiatry today and tomorrow will plan revascularization of this leg. Objective Data Temperature: 97.6 F Pulse Rate: 80 Respiratory Rate: 18 Blood Pressure: 123/58 O2 Sat by Pulse Oximetry: 98 Objective Data: Patient's leg not examined to the OR today for podiatry Assessment Assessment: Ischemic left leg with wound to the dorsal aspect of the left foot. Plan Plan: Plan revascularization of the left leg tomorrow, will follow with podiatry. Continue IV antibiotics
[2024-11-24] MEDS: EPHEDRINE SULFATE INJ ONE (08:21)
[2024-11-24] MEDS: HEPARIN 1,000 UNIT/500 ML-NS 3,000 UNIT/1,500 ML IV.SOLN ONE (08:27)
[2024-11-24] MEDS: MARCAINE 0.5% ONE (08:27)
[2024-11-24] MEDS: VISIPAQUE 50 ML ONE (08:30)
[2024-11-24] MEDS: VISIPAQUE 100 ML ONE (08:30)
[2024-11-24] MEDS: HEPARIN SODIUM INJ 5000 UNITS ONE (08:30)
[2024-11-24] MEDS: NS 500 ML IV 500 ML IV ONE ×3 (08:44→12:25)
--- NOTE | 2024-11-24 09:28 | OR.IMMED ---
IMMEDIATE POST-OP NOTE Immediate Post-Op Note Date of surgery/procedure: 11/24/24 Pre-Op Diagnosis: Critical ischemia with nonhealing wound to the dorsum left foot Post-Op Diagnosis: Same, see findings Procedure: Aortogram, arteriogram left leg, atherectomy and angioplasty of the left posterior tibial artery, angioplasty of the left peroneal artery, drug- coated balloon angioplasty of the popliteal artery Description of Procedure: Dictated Surgeon/Coal Handling Supervisor: Chapito Canseco MD, FACS Findings: Severe disease of the distal and proximal left popliteal artery, occlusion of the left anterior tibial artery all the way to the foot which is the area where the wound is. Severe disease near total occlusion of the midportion of the left posterior tibial and left peroneal arteries Estimated Blood Loss: 150 cc Complications: None
--- NOTE | 2024-11-24 09:44 | NOTE.SOAP ---
Soap Note Note for Day of Date of Exam: 11/24/24 Subjective Data Subjective Data: POD#1 incision drainage of foot, ankle, leg of the left lower extremity due to raging limb threatening infection. Has had no acute issues overnight. Seen in pre-op before surgery with Dr. Canseco. Objective Data Objective Data: Left Lower Extremity Exam: Dressing taken down. Wound to dorsal midfoot and ankle measuring approximately 10 cm x 10 cm x down to level of tendon and ligamentous structures. Small area of drainage proximally. No gross pus. Beads in place. Did not remove these. Reapplied 4x4s, ABD, [place], SUGAR. Assessment Assessment: POD#1 Incision and drainage of foot, ankle, leg of the left Plan Plan: - NWB to LLE. - Going for intervention with Dr. Canseco today. - Has had two positive blood cultures. Second one is showing no growth on Day 2. - Wound culture from yesterday is showing many gpcs. - On Zosyn currently. WBC 10.9. - Will highly likely require another washout with more incision and drainage with replacement of antibiotic beads. - This is tentavively being planned for Thursday.
[2024-11-24] MEDS: NS + KCL 40 MEQ/L 1,000 ML with MAGNESIUM SULFATE 50% INJ VIAL 1 G IV SCH (10:04)
[2024-11-24] MEDS: LR 1,000 ML IV 1,000 ML IV SCH (12:55)
[2024-11-24 14:33] LABS: HEMATOCRIT 26.9 % (42.0-54.0)
[2024-11-24] MEDS: NS 250 ML IV 250 ML IV ONE (14:58)
[2024-11-24] MEDS: K-DUR TAB 20 MEQ PO SCH (14:58)
[2024-11-24] MEDS: ZOSYN VIAL 4.5 GRAMS 4.5 G in NS 100 ML IV 100 ML IV SCH (21:46)
[2024-11-25 05:48] LABS: BASOPHILS % (AUTO) 0.3 % (0.2-1.0); EOSINOPHILS % (AUTO) 0.3 % (0.9-2.9); HEMATOCRIT 28.9 % (42.0-54.0); HEMOGLOBIN 9.8 g/dL (13.5-18.0); LYMPHOCYTES # (AUTO) 1.3 X10^3/uL (1.3-2.9); MEAN CORPUSCULAR HGB CONC 33.9 g/dL (33.0-35.0); MEAN CORPUSCULAR VOLUME 79.8 fL (80.0-100.0); MEAN PLATELET VOLUME 10.9 fL (7.4-11.0); MONOCYTES # (AUTO) 0.3 x10^3/uL (0.3-0.8); MONOCYTES % (AUTO) 3.2 % (0.0-13.0); NEUTROPHILS # (AUTO) 9.1 x10^3/uL (2.2-4.8); NEUTROPHILS % (AUTO) 84.2 % (42.0-75.0); PLATELET COUNT 177 X10^3/uL (150.0-450.0); RED BLOOD COUNT 3.62 X10^6/uL (4.7-6.0); RED CELL DISTRIBUTION WIDTH 16.4 % (11.6-16.5); WHITE BLOOD COUNT 10.8 X10^3/uL (3.6-10.0)
[2024-11-25 06:03] LABS: ALANINE AMINOTRANSFERASE 20 Units/L (12-78); ALBUMIN 2.2 g/dL (3.4-5.0); ALKALINE PHOSPHATASE 116 Units/L (46-116); ASPARTATE AMINO TRANSFERASE 16 Units/L (15-37); BLOOD UREA NITROGEN 11 mg/dL (7-18); CALCIUM 8.7 mg/dL (8.5-10.1); CARBON DIOXIDE 18.8 mmol/L (21-32); CHLORIDE 109 mmol/L (98-107); COR CA(FOR HYPOALB) 10.1 mg/dL (8.5-10.1); COR NA(FOR HYPERGLY) 142 mmol/L (136-145); CREATININE 1.21 mg/dL (0.70-1.30); GLUCOSE 157 mg/dL (65-99); MAGNESIUM 2.2 mg/dL (2.0-2.9); POTASSIUM 3.6 mmol/L (3.5-5.1); SODIUM 141 mmol/L (136-145); TOTAL PROTEIN 8.5 g/dL (6.4-8.2); eGFR NON BLACK RACES > 60 (>60)
[2024-11-25] MEDS: ZESTRIL TAB 20 MG ONE (10:36)
--- NOTE | 2024-11-25 13:09 | NOTE.SOAP ---
Soap Note Note for Day of Date of Exam: 11/25/24 Subjective Data Subjective Data: Status post debridement of necrotic left dorsal foot and subsequent revascularization with atherectomy and angioplasty of the left posterior tibial artery and angioplasty of the left peroneal artery. The anterior artery is occluded which may affect healing overall. Patient has antibiotic beads placed in the wound. Podiatry service is planning return to the operating suite on to debride the wound again although it looks good at this point. They will be seeing him over the weekend.. Objective Data Temperature: 97.4 F Pulse Rate: 62 Respiratory Rate: 19 Blood Pressure: 144/67 O2 Sat by Pulse Oximetry: 96 Objective Data: No change in physical exam, hemoglobin equals 9.8, creatinine equals 1.21 and white blood cell count is 10,800 Assessment Assessment: Skin left leg with poorly healing wound to the dorsum of the left foot. Plan Plan: Continue current treatment including IV antibiotics. Patient to return to the operating suite on Thursday for debridement of the dorsal foot again.
--- NOTE | 2024-11-25 14:01 | DR.OPNOTE ---
OP NOTE Pre-Op Diagnosis: Critical ischemia left foot with nonhealing wound to the dorsum left foot Post-Op Diagnosis: Same Procedure Date Date Of Procedure: 11/24/24 Procedure: PROCEDURE: Diagnostic aortogram, diagnostic arteriogram left leg, atherectomy and angioplasty of left posterior tibial artery, angioplasty left peroneal artery, drug-coated balloon angioplasty of the popliteal artery NARRATIVE: The patient was taken to the operative suite and placed in the supine position. The right groin and entire left leg were prepped and draped in sterile fashion. Patient was given intravenous sedation supervised by myself. Timeout for the procedure obtained. Ultrasound used to identify the femoral artery in the right groin and the skin overlying it infiltrated with 0.5% Marcaine. Ultrasound used to guide puncture of the right femoral artery and a 0.012 inch guidewire placed. Incision made over the guidewire at the skin edge with a #11 knife blade and the micro sheath placed over the guidewire into the femoral artery. Small wire exchanged for a 0.035 inch Advantage Glidewire and the micro sheath exchanged for a 5 Filipino vascular sheath. Patient given 5000 units of intravenous heparin. Omni catheter placed over the guidewire into the aorta and power injector used to perform aortogram showing normal aorta and iliac arteries. The Omni catheter was then used to direct the guidewire down the left common iliac artery to the distal left external iliac artery. The Omni catheter exchanged for a Purmela catheter and sequential arteriograms performed of the left leg showing severe disease of the popliteal artery just below the knee joint, completely occluded left anterior tibial artery all the way to the ankle with no reconstitution. Severe disease with areas of complete occlusion of both the mid portion of the left posterior tibial and left peroneal arteries.. The Purmela catheter removed and over the guidewire the 5 Filipino sheath was exchanged for a 7 Filipino Catpult Sheath which was parked the proximal left superficial femoral artery. Purmela catheter and the 0.035 guidewire used to traverse the arteries of the left leg ultimately ending in the left posterior tibial artery all the way to the ankle . This was selective catheterization. Purmela catheter used to exchange 0.035 inch wire for a 0.014 inch Thruway wire. Over the Thruway wire we placed the [employer] atherectomy device and performed atherectomy of the proximal and mid left posterior tibial artery. We then balloon dilated this artery with a 2.5 mm by 220 mm [place] balloon inflated for 1 minute. At this point the wire was backed up and we selectively catheterized the peroneal artery all the way to the ankle. We then balloon dilated this artery with a [employer] [place] 2.5 x 220 mm balloon inflated for 1 minute. Post procedure arteriogram showed excellent flow through both of these vessels all the way to the ankle. There still was no significant filling however into the area of the wound which is concerning. At this point over the wire we placed a [employer] [place] 6 mm x 200 mm drug coated balloon over the area of the popliteal artery and into the distal superficial artery and inflated for 3 minutes. Post arteriogram showed excellent flow here. After arterial intervention follow-up arteriogram performed showing excellent outcome. Wires and devices removed from the Catapult sheath. This sheath pulled back into the aorta and a 0.035 guidewire placed. Catapult sheath exchanged over the wire for a Angio-Seal device used to close the puncture of the right femoral artery. Patient taken to same-day surgery in good condition. Type of Anesthesia: Local (0.5% Marcaine) Anesthesia Comment: Plus MAC Findings: Severe disease of the distal and proximal left popliteal artery, occlusion of the left anterior tibial artery all the way to the foot, severe disease near total occlusion of the midportion of the left posterior tibial and left peroneal arteries Type of Fluids Used:: Lactated Ringers Total Amount of Fluid Infused:: 800 cc EBL: 150 cc Complications:: none Needle/Sponge Count:: correct Disposition/Condition: Pt. tolerated procedure without difficulty. Taken back to the floor in stable condition.
[2024-11-25] MEDS ORDERED: PHARMACY CONSULT - VANCOMYCIN XX SCH (18:00)
[2024-11-25] MEDS: VANCOMYCIN HCL 1 G in D5W 250 ML IV 250 ML IV ONE (23:29)
[2024-11-26 06:32] LABS: BASOPHILS % (AUTO) 0.1 % (0.2-1.0); EOSINOPHILS % (AUTO) 0.5 % (0.9-2.9); HEMATOCRIT 27.6 % (42.0-54.0); HEMOGLOBIN 9.5 g/dL (13.5-18.0); LYMPHOCYTES # (AUTO) 1.2 X10^3/uL (1.3-2.9); LYMPHOCYTES % (AUTO) 13.5 % (21.0-51.0); MEAN CORPUSCULAR HEMOGLOBIN 27.2 pg (27.0-34.0); MEAN CORPUSCULAR HGB CONC 34.3 g/dL (33.0-35.0); MEAN CORPUSCULAR VOLUME 79.2 fL (80.0-100.0); MEAN PLATELET VOLUME 11.2 fL (7.4-11.0); MONOCYTES # (AUTO) 0.3 x10^3/uL (0.3-0.8); MONOCYTES % (AUTO) 3.9 % (0.0-13.0); NEUTROPHILS # (AUTO) 7.2 x10^3/uL (2.2-4.8); PLATELET COUNT 163 X10^3/uL (150.0-450.0); RED BLOOD COUNT 3.49 X10^6/uL (4.7-6.0); RED CELL DISTRIBUTION WIDTH 16.4 % (11.6-16.5); WHITE BLOOD COUNT 8.8 X10^3/uL (3.6-10.0)
[2024-11-26 06:44] LABS: ALANINE AMINOTRANSFERASE 18 Units/L (12-78); ALKALINE PHOSPHATASE 105 Units/L (46-116); ASPARTATE AMINO TRANSFERASE 12 Units/L (15-37); BLOOD UREA NITROGEN 7 mg/dL (7-18); CALCIUM 8.1 mg/dL (8.5-10.1); CHLORIDE 107 mmol/L (98-107); COR CA(FOR HYPOALB) 9.7 mg/dL (8.5-10.1); COR NA(FOR HYPERGLY) 143 mmol/L (136-145); CREATININE 1.12 mg/dL (0.70-1.30); GLUCOSE 165 mg/dL (65-99); SODIUM 141 mmol/L (136-145); TOTAL PROTEIN 6.7 g/dL (6.4-8.2); eGFR NON BLACK RACES > 60 (>60)
[2024-11-26] MEDS ORDERED: ZESTRIL TAB 20 MG ONE (08:22)
[2024-11-26] MEDS: VANCOMYCIN HCL 750 MG VIAL 750 MG in D5W 250 ML IV 250 ML IV SCH (08:33)
[2024-11-26] MEDS: K-DUR TAB 20 MEQ PO SCH (08:35)
[2024-11-26] MEDS: LR 1,000 ML IV 1,000 ML with MAGNESIUM SULFATE 50% INJ VIAL 2 G IV SCH (09:34)
--- NOTE | 2024-11-26 18:04 | DR.CONSULT ---
CONSULT Consultation for Day of: Date: 11/26/24 Chief Complaint Chief Complaint: Bradycardia Allergies Allergies Allergy/AdvReac Type Severity Reaction Status Date / Time No Known Allergies Allergy Verified 11/21/24 09:09 History of Present Illness History of Present Illness: Patient currently admitted to vascular surgery with podiatry consult due to left, dorsal foot wound and PAD/PVD. Did undergo I&D with podiatry earlier this week. Medicine consulted due to bradycardia overnight x 2. Has been in the low-30s 1 night and in the 50s other night. Review of the chart from last year when he had a revascularization of the right leg and then a midfoot amputation showed similar. Also had consistent sinus bradycardia in August 2023 when he was admitted to the ICU due to sepsis before being transferred out due to elevated troponins. Beta-enrique is currently being held and telemetry-health consults to ID and cardiology are being placed by primary team. Patient currently asking when he will be able to go home. Denies any chest pain, PAREDES, vision changes, dizziness, presyncopal feelings, headache, nausea, or vomiting. Nurses deny any issues other than the bradycardia. Cultures positive for MRSA in the wound and 2 staph species thought to be contaminants in his blood cultures. ROS: 12 point ROS significant for amputation of the right midfoot, left dorsal foot wound, and fatigue. PE: Elderly male in no acute distress. Reclined in bed. Hearing slightly diminished but able to carry conversation without difficulty. Heart regular rate and rhythm with no murmur appreciated. Lungs clear bilaterally with strong speech. Belly is soft and nontender with bowel sounds present. 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 Left foot with clean, dry bandage around it. Skin color and turgor appropriate for patient. Mood and affect are blunted and irritable. Past Medical History Past Medical History: Coronary Artery Disease, CVA, Diabetes, Dyslipidemia and Hypertension Past Surgical History Surgical History: CABG/Valve Surgery Family History Family Medical History: Hypertension Social History Type of Tobacco Use: None Alcohol Use: None Drug Use: None Medications Home Medications: No Known Allergies Allergy (Verified 11/21/24 09:09) CONTINUE taking the following medications potassium chloride 20 mEq tablet,extended release 20 meq PO BID 11/21/24 [History] Physical Exam Vital Signs: Vital Signs Temperature 98.1 F Temperature 98.7 F Pulse Rate [Left Brachial] 66 Pulse Rate [Left Brachial] 65 Respiratory Rate 20 Respiratory Rate 16 Blood Pressure [Right Arm] 159/74 Blood Pressure [Right Arm] 157/70 O2 Sat by Pulse Oximetry 99 O2 Sat by Pulse Oximetry 97 Plan (1) Atherosclerosis of [place] arteries of extremities with rest pain, left leg: Status: Acute (2) Type 2 diabetes mellitus without complications: Status: Acute 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 Continue antibiotics, hydration, and close monitoring. No ICU at this time. Agree with consults. Hold beta-enrique.
[2024-11-26] MEDS: LR 1,000 ML IV 1,000 ML with POTASSIUM CHLORIDE INJ 40 MEQ VIAL 40 MEQ, MAGNESIUM SULFA... IV SCH (20:33)
[2024-11-27 07:42] LABS: RED CELL DISTRIBUTION WIDTH 16.5 % (11.6-16.5)
[2024-11-27 07:46] LABS: HEMOGLOBIN 10.6 g/dL (13.5-18.0); NEUTROPHILS # (AUTO) 6.3 x10^3/uL (2.2-4.8)
[2024-11-27 07:48] LABS: ALANINE AMINOTRANSFERASE 16 Units/L (12-78); ALBUMIN 2.1 g/dL (3.4-5.0); ALKALINE PHOSPHATASE 104 Units/L (46-116); ASPARTATE AMINO TRANSFERASE 15 Units/L (15-37); BLOOD UREA NITROGEN 5 mg/dL (7-18); CALCIUM 8.2 mg/dL (8.5-10.1); CHLORIDE 106 mmol/L (98-107); COR CA(FOR HYPOALB) 9.7 mg/dL (8.5-10.1); COR NA(FOR HYPERGLY) 142 mmol/L (136-145); CREATININE 1.12 mg/dL (0.70-1.30); GLUCOSE 155 mg/dL (65-99); MAGNESIUM 2.3 mg/dL (2.0-2.9); POTASSIUM 3.3 mmol/L (3.5-5.1); SODIUM 141 mmol/L (136-145); eGFR NON BLACK RACES > 60 (>60)
[2024-11-27 07:51] LABS: BASOPHILS % (AUTO) 0.2 % (0.2-1.0); EOSINOPHILS % (AUTO) 0.3 % (0.9-2.9); HEMATOCRIT 30.7 % (42.0-54.0); LYMPHOCYTES # (AUTO) 1.5 X10^3/uL (1.3-2.9); MEAN CORPUSCULAR HGB CONC 34.3 g/dL (33.0-35.0); MEAN CORPUSCULAR VOLUME 78.6 fL (80.0-100.0); MEAN PLATELET VOLUME 10.5 fL (7.4-11.0); MONOCYTES # (AUTO) 0.3 x10^3/uL (0.3-0.8); MONOCYTES % (AUTO) 4.1 % (0.0-13.0); NEUTROPHILS % (AUTO) 77.4 % (42.0-75.0); PLATELET COUNT 160 X10^3/uL (150.0-450.0); RED BLOOD COUNT 3.91 X10^6/uL (4.7-6.0); WHITE BLOOD COUNT 8.1 X10^3/uL (3.6-10.0)
[2024-11-27 07:54] LABS: CREATININE 1.04 mg/dL (0.70-1.30); VANCOMYCIN,TROUGH 12.1 ug/mL (15-20)
--- NOTE | 2024-11-27 09:32 | NOTE.SOAP ---
Soap Note Note for Day of Date of Exam: 11/27/24 Subjective Data Subjective Data: Patient is POD#4 from InD Left foot, ankle, and calf. He has been bradycardic recently with drops in his EKG. Paige saw him. Holding his beta blockers currently. Cardiology consult was placed. They cannot see him until Thursday via Patti.We do have [facility] here at the hospital. Our charge nurse did place a consult for them. His blood cultures were positive and his wound grew MRSA. Started him on Vanc with pharmacy to dose. ID consult was placed as well. They cannot see him till Thursday morning as well. His vitals are stable today. He is feeling fine. Objective Data Objective Data: Left Lower Extremity Exam: Wound to dorsal midfoot/anlkle measuring 10 cm x 10 cm x down to tendon and l igmanetous structures. No gross purulence. Some small fat necrosis drainage coming proximally. Antibiotic beads are in place. Id did remove these using sterile suture removers. Placed a saline wet to dry dressing on the left foot. Assessment Assessment: POD#4 Incision and drainage, left foot/ankle/calf Plan Plan: - VSS. - On tele currently. HR 68 currently. Still seeing some losses of complex on the EKG. Patient is clinically stable. - Dr. Gibson has seen him. We are holding his beta blockers currently. - Cardiology is being consulted. Patti cullen see him till Thursday. We do have an [facility] phone only cardiology that our charge did place a consult for. - Potassium is 3.3 today. Still on Oral potassium. - WBC is 8.9. - Blood culture grew staph, could be contaminate. Repeat culture pending. - Wound culture grew MRSA. - Started on IV Vancomycin currently. Pharmacy dosing. - ID consult placed. patient cannot be seen until Thursday by ID. - Dressing was taken down and examined. Antibiotic beads pulled. Redressed with saline 4x4s, SUGAR [place]. - Patient will need another washout this week. Once he is medically stable and seen by Cardiology and ID. - Tentatively planning Thursday once medically stable. - For time being continue daily saline dressing changes on the left foot. He needs bilateral waffle boots to both feet.
[2024-11-27] MEDS: LR 1,000 ML IV 1,000 ML with POTASSIUM CHLORIDE INJ 40 MEQ VIAL 40 MEQ, MAGNESIUM SULFA... IV SCH (10:35)
[2024-11-27] MEDS: ZESTRIL TAB 20 MG ONE (10:38)
--- NOTE | 2024-11-27 10:54 | EKG ---
Test Reason : bradycardia , Blood Pressure : */* mmHG Vent. Rate : 69 BPM Atrial Rate : 69 BPM P-R Int : 288 ms QRS Dur : 138 ms QT Int : 552 ms P-R-T Axes : 25 -77 43 degrees QTc Int : 591 ms Sinus rhythm with 1st degree AV block with premature atrial complexes Left axis deviation Right bundle branch block Inferior infarct (cited on or before 27-OCT-2023) Abnormal ECG When compared with ECG of 27-OCT-2023 15:38, premature atrial complexes are now present Questionable change in QRS duration Criteria for Anterior infarct are no longer present Criteria for Anterolateral infarct are no longer present Confirmed by Aung Maier MD ([id number]) on 11/28/2024 9:33:12 AM Referred By: Confirmed By: Aung Maier MD
--- NOTE | 2024-11-27 16:19 | NOTE.SOAP ---
Soap Note Note for Day of Date of Exam: 11/27/24 Subjective Data Subjective Data: No acute events overnight. Heart rate still on the lower side but better. EKG changes compared to October 06 in [employer] system and appear unchanged. Objective Data Objective Data: Elderly male in no acute distress. Heart regular rate and rhythm. Lungs are clear. Bowel sounds present. Assessment Assessment: 1. asymptomatic bradycardia 2. MRSA foot wound 3. hypokalemia Plan Plan: Cardiology consult tomorrow. Continue to hold beta-enrique. Continue Vanco for now. ID consult tomorrow. Potassium repletion per protocol.
--- NOTE | 2024-11-28 00:06 | NOTE.SOAP ---
Soap Note Note for Day of Date of Exam: 11/27/24 Subjective Data Subjective Data: Patient was to be taken to the operating suite tomorrow for debridement of the left foot wound. Patient has had bradycardia and has been seen in consultation by Dr. Oro. Beta-enrique has been held for now. Infectious disease and cardiology consults pending. Objective Data Temperature: 98.3 F Pulse Rate: 76 Respiratory Rate: 19 Blood Pressure: 160/74 O2 Sat by Pulse Oximetry: 96 Objective Data: Dressing intact. Positive wound culture for MRSA. Blood culture positive for atypical Staphylococcus Assessment Assessment: Status post revascularization of the left leg and subsequent debridement and placement of antibiotic beads. Planning additional debridement but patient was significant bradycardia. Beta-enrique held. Has been stable today. Plan Plan: Cardiology and infectious disease consult
[2024-11-28 03:30] LABS: BASOPHILS # (AUTO) 0.1 X10^3/uL (0.0-0.1); EOSINOPHILS % (AUTO) 0.3 % (0.9-2.9); HEMOGLOBIN 11.2 g/dL (13.5-18.0); LYMPHOCYTES # (AUTO) 1.5 X10^3/uL (1.3-2.9); MEAN CORPUSCULAR HEMOGLOBIN 26.9 pg (27.0-34.0); MEAN CORPUSCULAR HGB CONC 33.9 g/dL (33.0-35.0); MEAN CORPUSCULAR VOLUME 79.3 fL (80.0-100.0); MEAN PLATELET VOLUME 10.6 fL (7.4-11.0); MONOCYTES # (AUTO) 0.4 x10^3/uL (0.3-0.8); MONOCYTES % (AUTO) 4.3 % (0.0-13.0); NEUTROPHILS # (AUTO) 6.5 x10^3/uL (2.2-4.8); NEUTROPHILS % (AUTO) 76.4 % (42.0-75.0); PLATELET COUNT 171 X10^3/uL (150.0-450.0); RED BLOOD COUNT 4.16 X10^6/uL (4.7-6.0); RED CELL DISTRIBUTION WIDTH 16.8 % (11.6-16.5); WHITE BLOOD COUNT 8.5 X10^3/uL (3.6-10.0)
[2024-11-28 03:42] LABS: ALANINE AMINOTRANSFERASE 17 Units/L (12-78); ALBUMIN 2.3 g/dL (3.4-5.0); ALKALINE PHOSPHATASE 106 Units/L (46-116); ASPARTATE AMINO TRANSFERASE 16 Units/L (15-37); BLOOD UREA NITROGEN 6 mg/dL (7-18); CALCIUM 8.5 mg/dL (8.5-10.1); CARBON DIOXIDE 28.8 mmol/L (21-32); CHLORIDE 102 mmol/L (98-107); COR CA(FOR HYPOALB) 9.9 mg/dL (8.5-10.1); COR NA(FOR HYPERGLY) 139 mmol/L (136-145); CREATININE 1.06 mg/dL (0.70-1.30); GLUCOSE 170 mg/dL (65-99); POTASSIUM 3.9 mmol/L (3.5-5.1); SODIUM 137 mmol/L (136-145); TOTAL PROTEIN 7.1 g/dL (6.4-8.2); eGFR NON BLACK RACES > 60 (>60)
[2024-11-28] MEDS ORDERED: NOZIN NASAL SANITIZER TP SCH (05:00)
[2024-11-28] MEDS ORDERED: PHARMACY COMMENT IV SCH (07:30)
[2024-11-28] MEDS: ZESTRIL TAB 20 MG ONE (08:37)
--- NOTE | 2024-11-28 09:55 | NOTE.SOAP ---
Soap Note Note for Day of Date of Exam: 11/28/24 Subjective Data Subjective Data: No acute events overnight. Cardiology has evaluated patient this morning. Proceed with echo. Objective Data Objective Data: Elderly male in no acute distress. Hearing intact conversation. Heart regular rate and rhythm. Lungs are clear. Mood and affect are blunted. Assessment Assessment: 1. asymptomatic bradycardia 2. MRSA foot wound 3. hypokalemia Plan Plan: Agree with echo. ID consulted as well. Tighter BP control today.
--- NOTE | 2024-11-28 11:35 | DR.CONSULT ---
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- needs left foot vascular surgery- no cv sx but minimal walking since lost toes last year- noted on tele: occ kieran- low hr 54, review of tele: nsr first degree AVB- low hr 54- usual 60-70- meds include bb/ccb/asa/steven/statin Past Medical History Past Medical History: Coronary Artery Disease, CVA, Diabetes, Dyslipidemia and Hypertension Past Surgical History Surgical History: CABG/Valve Surgery Family History Family Medical History: Hypertension Social History Type of Tobacco Use: None Alcohol Use: None Drug Use: None Medications Home Medications: No Known Allergies Allergy (Verified 11/21/24 09:09) CONTINUE taking the following medications potassium chloride 20 mEq tablet,extended release 20 meq PO BID 11/21/24 [History] Physical Exam Vital Signs: Vital Signs Temperature 97.9 F Temperature 98.0 F Pulse Rate [Left Brachial] 76 Pulse Rate [Left Brachial] 75 Respiratory Rate 18 Respiratory Rate 18 Blood Pressure [Right Arm] 153/70 Blood Pressure [Right Arm] 141/78 O2 Sat by Pulse Oximetry 99 O2 Sat by Pulse Oximetry 96 bp alittle high hr 50s on 24 november alert ox3 clera lungs rrr soft travon no toes R/l foot bandged ekg: nsr first degree AVB inf mi- prwp progression/? ant mi- not seen compared to last year echo: good EF/ subtle inf base hypokinesis labs to note: wbc 8.5 hct 33 k 3.9 cr 1.06 cxr 10/26/24 NAD Plan (1) Atherosclerosis of [place] arteries of extremities with rest pain, left leg: Status: Acute (2) Type 2 diabetes mellitus without complications: Status: Acute Qualifiers: Diabetes mellitus intermodal owner operator truck driver insulin use: without correction use Qualified Code(s): E11.9 - Type 2 diabetes mellitus without complications (3) Essential (primary) hypertension: Status: Acute (4) Chronic ischemic heart disease, unspecified: Status: Acute (5) History of CVA (cerebrovascular accident): Status: Acute (6) Cellulitis of left foot: Status: Acute (7) Sinus bradycardia: Status: Acute (8) Preop cardiovascular exam: Status: Acute Narrative Support Text: acceptable cv risk- keep eye on HR/tele- will push bp meds
[2024-11-28] MEDS: NORVASC TAB 5 MG PO SCH (20:16)
[2024-11-29] MEDS: HIBICLENS WASH EXT ONE ×2 (04:13→20:49)
[2024-11-29 07:38] LABS: BASOPHILS % (AUTO) 0.5 % (0.2-1.0); EOSINOPHILS % (AUTO) 0.3 % (0.9-2.9); HEMATOCRIT 35.7 % (42.0-54.0); LYMPHOCYTES # (AUTO) 1.6 X10^3/uL (1.3-2.9); LYMPHOCYTES % (AUTO) 19.9 % (21.0-51.0); MEAN CORPUSCULAR HGB CONC 33.7 g/dL (33.0-35.0); MEAN PLATELET VOLUME 10.3 fL (7.4-11.0); MONOCYTES # (AUTO) 0.4 x10^3/uL (0.3-0.8); NEUTROPHILS # (AUTO) 5.8 x10^3/uL (2.2-4.8); NEUTROPHILS % (AUTO) 74.3 % (42.0-75.0); PLATELET COUNT 172 X10^3/uL (150.0-450.0); RED BLOOD COUNT 4.47 X10^6/uL (4.7-6.0); RED CELL DISTRIBUTION WIDTH 17.1 % (11.6-16.5); WHITE BLOOD COUNT 7.8 X10^3/uL (3.6-10.0)
[2024-11-29 07:54] LABS: ALANINE AMINOTRANSFERASE 16 Units/L (12-78); ALBUMIN 2.3 g/dL (3.4-5.0); ALKALINE PHOSPHATASE 108 Units/L (46-116); ASPARTATE AMINO TRANSFERASE 15 Units/L (15-37); BLOOD UREA NITROGEN 7 mg/dL (7-18); CALCIUM 8.7 mg/dL (8.5-10.1); CARBON DIOXIDE 27.2 mmol/L (21-32); CHLORIDE 100 mmol/L (98-107); COR CA(FOR HYPOALB) 10.1 mg/dL (8.5-10.1); COR NA(FOR HYPERGLY) 136 mmol/L (136-145); CREATININE 1.11 mg/dL (0.70-1.30); GLUCOSE 130 mg/dL (65-99); POTASSIUM 4.9 mmol/L (3.5-5.1); SODIUM 135 mmol/L (136-145); TOTAL PROTEIN 7.6 g/dL (6.4-8.2); eGFR NON BLACK RACES > 60 (>60)
[2024-11-29 08:03] LABS: CREATININE 1.07 mg/dL (0.70-1.30); VANCOMYCIN,TROUGH 18.2 ug/mL (15-20)
--- NOTE | 2024-11-29 09:33 | NOTE.SOAP ---
Soap Note Note for Day of Date of Exam: 11/28/24 Subjective Data Subjective Data: Patient has had arterial intervention by myself with subsequent debridement of the left dorsal foot with placement of antibiotic beads. Podiatry is planning repeat trip to the OR to debride the wound but if the patient has had bradycardia. Beta-enrique has been held. Patient seen in consultation by Dr. Maier cardiology and now is deemed ready for the OR. Patient otherwise s table. Objective Data Temperature: 97.6 F Pulse Rate: 80 Respiratory Rate: 19 Blood Pressure: 159/80 O2 Sat by Pulse Oximetry: 98 Objective Data: Left foot warm. No significant drainage where the beads were placed at the dorsum of the left foot Assessment Assessment: Status post revascularization and debridement of the left foot. Plan Plan: Will discuss plan with podiatry service to see when they are going to take the patient back so we can plan discharge home.
--- NOTE | 2024-11-29 12:33 | NOTE.SOAP ---
Soap Note Note for Day of Date of Exam: 11/29/24 Subjective Data Subjective Data: No overnight events. Cardiology has cleared. Agree with surgery today or tomorrow. Needs better BP control. Objective Data Objective Data: Elderly male in no acute distress. Hearing intact conversation. Heart regular rate and rhythm. Lungs are clear with shallow respirations. Bowel sounds present. Assessment Assessment: 1. asymptomatic bradycardia 2. MRSA foot wound 3. hypokalemia, resolved. 4. Benign essential HTN Plan Plan: Per surgery. BP management. Electrolyte replacement as needed.
[2024-11-29] MEDS: LR 1,000 ML IV 1,000 ML IV SCH (13:00)
--- NOTE | 2024-11-29 14:33 | NOTE.SOAP ---
Soap Note Note for Day of Date of Exam: 11/29/24 Subjective Data Subjective Data: Patient resting in bed. Thought he was going to OR today. Discussed he had to be cleared by Cardiology. Cardiology cleared. ID on board, recommending continuing Vanc for time being. Blood cultures are negative currently. Objective Data Objective Data: Left Lower Extremity Exam: Dressing intact. No strikethrough. Assessment Assessment: 74 year old M s/p InD Left foot/ankle/calf Plan Plan: - NPO after midnight. Order placed. - Do not have to hold blood thinners. - Will perform another washout. - Will apply graft and wound vac as well. - Once this is done and he has received ID recommendations he can be discharged. - Talked to CM they are aware that he will need home health and wound vac. He has wound vac this will be jewell to OR with him.
--- NOTE | 2024-11-29 15:48 | NOTE.SOAP ---
Soap Note Note for Day of Date of Exam: 11/29/24 Subjective Data Subjective Data: Patient's status post revascularization of the left leg and subsequent debridement of the dorsal left foot and placement antibiotic beads. Growing gram-positive cocci, MRSA. Patient did have bradycardia did have bradycardia. Patient had beta-blockers held and seen in consultation by cardiology who believes he is ready for the OR. Telemetry medicine consult for infectious dis ease performed and the patient remains on vancomycin. Objective Data Temperature: 98.2 F Pulse Rate: 83 Respiratory Rate: 19 Blood Pressure: 147/76 O2 Sat by Pulse Oximetry: 98 Objective Data: Left foot is warm with good Doppler signals. Wound is improving. Assessment Assessment: Ischemic wound of the left dorsal foot status post revascularization of the left leg with debridement and placement of antibiotic beads. Plan Plan: She will continue on IV antibiotics., IV vancomycin. Podiatry to take the patient OR tomorrow to debride the wound, placed wound vacuum and skin graft. Patient can be discharged after this. Will need home health. This will be necessary to take care of wound vacuum
[2024-11-29] MEDS: VANCOMYCIN IV *PREMIX 750 mg/150 ML BAG 750 MG/150 ML PIGGYBACK IV SCH (20:49)
[2024-11-29] MEDS: K-DUR TAB 20 MEQ PO SCH (20:50)
[2024-11-29] MEDS: RESTORIL CAP 15 MG PO PRN (22:27)
[2024-11-30 06:03] LABS: BASOPHILS # (AUTO) 0.1 X10^3/uL (0.0-0.1); EOSINOPHILS % (AUTO) 0.4 % (0.9-2.9); HEMATOCRIT 35.1 % (42.0-54.0); HEMOGLOBIN 11.9 g/dL (13.5-18.0); LYMPHOCYTES # (AUTO) 2.1 X10^3/uL (1.3-2.9); LYMPHOCYTES % (AUTO) 28.4 % (21.0-51.0); MEAN CORPUSCULAR HEMOGLOBIN 27.1 pg (27.0-34.0); MEAN CORPUSCULAR HGB CONC 33.8 g/dL (33.0-35.0); MEAN CORPUSCULAR VOLUME 80.3 fL (80.0-100.0); MEAN PLATELET VOLUME 10.3 fL (7.4-11.0); MONOCYTES # (AUTO) 0.4 x10^3/uL (0.3-0.8); NEUTROPHILS # (AUTO) 4.8 x10^3/uL (2.2-4.8); NEUTROPHILS % (AUTO) 65.2 % (42.0-75.0); PLATELET COUNT 168 X10^3/uL (150.0-450.0); RED BLOOD COUNT 4.38 X10^6/uL (4.7-6.0); RED CELL DISTRIBUTION WIDTH 17.2 % (11.6-16.5); WHITE BLOOD COUNT 7.4 X10^3/uL (3.6-10.0)
[2024-11-30 06:23] LABS: ALANINE AMINOTRANSFERASE 13 Units/L (12-78); ALBUMIN 2.4 g/dL (3.4-5.0); ALKALINE PHOSPHATASE 101 Units/L (46-116); ASPARTATE AMINO TRANSFERASE 14 Units/L (15-37); BLOOD UREA NITROGEN 10 mg/dL (7-18); CALCIUM 8.6 mg/dL (8.5-10.1); CARBON DIOXIDE 25.8 mmol/L (21-32); CHLORIDE 101 mmol/L (98-107); COR CA(FOR HYPOALB) 9.9 mg/dL (8.5-10.1); COR NA(FOR HYPERGLY) 134 mmol/L (136-145); CREATININE 1.19 mg/dL (0.70-1.30); GLUCOSE 114 mg/dL (65-99); SODIUM 134 mmol/L (136-145); TOTAL PROTEIN 8.5 g/dL (6.4-8.2); eGFR NON BLACK RACES > 60 (>60)
[2024-11-30 06:31] LABS: POTASSIUM 5.2 mmol/L (3.5-5.1)
[2024-11-30] MEDS: ZESTRIL TAB 20 MG ONE ×2 (07:09→08:48)
[2024-11-30] MEDS: PEPCID 20 MG VIAL ONE (10:36)
[2024-11-30] MEDS: ZOFRAN INJ 4 MG VIAL ONE ×2 (10:38→11:16)
[2024-11-30] MEDS: VERSED ONE (10:38)
[2024-11-30] MEDS: NS 1,000 ML IV 1,000 ML ONE (10:41)
[2024-11-30] MEDS: DIPRIVAN VIAL 20 ML ONE (10:45)
[2024-11-30] MEDS: PEPCID 20 MG VIAL IVP PRN (11:16)
[2024-11-30] MEDS: ZOFRAN INJ 4 MG VIAL IVP PRN (11:16)
[2024-11-30] MEDS: NS 1,000 ML IV 800 ML IV PRN (11:28)
[2024-11-30] MEDS: DIPRIVAN VIAL 250 ML IVP PRN (11:33)
[2024-11-30] MEDS: VERSED IVP PRN (11:33)
[2024-11-30] MEDS: BETADINE SOLN ONE ×2 (11:35→12:31)
[2024-11-30] MEDS: MARCAINE 0.25% INJ ONE (11:39)
[2024-11-30] MEDS: ROBINUL IVP PRN (11:43)
[2024-11-30] MEDS: ROBINUL ONE (11:46)
[2024-11-30] MEDS: EPHEDRINE SULFATE INJ ONE (11:46)
[2024-11-30] MEDS: NEO-SYNEPHRINE INJ IVP PRN (12:34)
[2024-11-30] MEDS: EPHEDRINE SULFATE INJ IVP PRN (12:37)
--- NOTE | 2024-11-30 12:44 | NOTE.SOAP ---
Soap Note Note for Day of Date of Exam: 11/30/24 Subjective Data Subjective Data: Has already had revascularization of the left leg and subsequent debridement of the dorsal left foot wound. Patient for debridement of this wound and placement of skin graft and wound vacuum later today. Patient then can be discharged home. Home health will monitor the wound VAC in. Infectious disease consult is recommended did vancomycin to be given as an outpatient. Objective Data Temperature: 97.5 F Pulse Rate: 77 Respiratory Rate: 17 Blood Pressure: 135/73 O2 Sat by Pulse Oximetry: 97 Objective Data: For further debridement of dorsal left foot wound and placement of wound vacuum and skin graft today. Assessment Assessment: Status post revascularization of the left leg and debridement of wounds and placement of external fixator and skin graft and wound VAC in Plan Plan: Will arrange home health for continued IV antibiotics of vancomycin as per infectious disease, wound vacuum care and follow-up with me.
[2024-12-01 06:10] LABS: BASOPHILS % (AUTO) 0.3 % (0.2-1.0); EOSINOPHILS % (AUTO) 0.3 % (0.9-2.9); HEMATOCRIT 30.1 % (42.0-54.0); HEMOGLOBIN 10.3 g/dL (13.5-18.0); LYMPHOCYTES # (AUTO) 1.5 X10^3/uL (1.3-2.9); LYMPHOCYTES % (AUTO) 15.8 % (21.0-51.0); MEAN CORPUSCULAR HEMOGLOBIN 27.4 pg (27.0-34.0); MEAN CORPUSCULAR HGB CONC 34.1 g/dL (33.0-35.0); MEAN CORPUSCULAR VOLUME 80.3 fL (80.0-100.0); MEAN PLATELET VOLUME 10.9 fL (7.4-11.0); MONOCYTES # (AUTO) 0.3 x10^3/uL (0.3-0.8); MONOCYTES % (AUTO) 3.4 % (0.0-13.0); NEUTROPHILS # (AUTO) 7.8 x10^3/uL (2.2-4.8); NEUTROPHILS % (AUTO) 80.2 % (42.0-75.0); PLATELET COUNT 157 X10^3/uL (150.0-450.0); RED BLOOD COUNT 3.76 X10^6/uL (4.7-6.0); RED CELL DISTRIBUTION WIDTH 17.2 % (11.6-16.5); WHITE BLOOD COUNT 9.8 X10^3/uL (3.6-10.0)
[2024-12-01 06:30] LABS: ALANINE AMINOTRANSFERASE 12 Units/L (12-78); ALBUMIN 2.1 g/dL (3.4-5.0); ALKALINE PHOSPHATASE 97 Units/L (46-116); ASPARTATE AMINO TRANSFERASE 13 Units/L (15-37); BLOOD UREA NITROGEN 13 mg/dL (7-18); CALCIUM 8.4 mg/dL (8.5-10.1); CARBON DIOXIDE 23.6 mmol/L (21-32); CHLORIDE 101 mmol/L (98-107); COR CA(FOR HYPOALB) 9.9 mg/dL (8.5-10.1); COR NA(FOR HYPERGLY) 135 mmol/L (136-145); CREATININE 1.28 mg/dL (0.70-1.30); GLUCOSE 128 mg/dL (65-99); MAGNESIUM 1.9 mg/dL (2.0-2.9); POTASSIUM 5.3 mmol/L (3.5-5.1); SODIUM 134 mmol/L (136-145); TOTAL PROTEIN 7.7 g/dL (6.4-8.2); eGFR NON BLACK RACES 58 (>60)
--- NOTE | 2024-12-01 08:55 | NOTE.SOAP ---
Soap Note Note for Day of Date of Exam: 12/01/24 Subjective Data Subjective Data: Pt in OR yesterday, but now with discharge planning in place. Wound VAC in place and patient currently eating breakfast. States he is ready to go home. Objective Data Objective Data: Elderly male in no acute distress. Heart regular rate and rhythm. Lungs clear, speech strong. Bowel sounds present. Dressing of lower extremities are clean and dry. Assessment Assessment: 1. Left foot wound 2. Hypertension 3. Asymptomatic bradycardia Plan Plan: Has done well postop. Home with p.o. antibiotics per ID recs and wound VAC. Outpatient follow-up with cardiology recommended
[2024-12-01] MEDS: ZESTRIL TAB 20 MG ONE (09:35)
[2024-12-01] MEDS: BUTT CREAM (COMPOUND) ONE (11:01)
[2024-12-01 11:36] VITALS: BP 120/58; PULSE 51; RESP 18; TEMP 96.8; O2SAT 97
[2024-12-01] MEDS ORDERED: BACTRIM DS TAB PO SCH (21:00)
--- NOTE | 2024-12-04 20:33 | W.DIS.FURT ---
Summary of Discharge Discharge Summary of Date Date of Exam: 12/01/24 Admission Date Date of Admission: 11/21/24 Admission Diagnosis Hospital Course: This a 74-year-old male with prior history of arterial intervention of the right leg and subsequent right transmetatarsal amputation which healed. Patient presented now with a necrotic wound over the dorsum of the left foot with evidence of arterial insufficiency documented by CT angiogram. Patient was admitted on November 21. He underwent debridement of the wound to the dorsum of the foot by the podiatry service on November 23. On November 24 I took him to the OR and performed angioplasty left posterior tibial and left peroneal arteries as well as drug-coated balloon angioplasty left popliteal artery. The podiatry had placed antibiotic beads over the wound. and planned return to the OR. Patient had episodes of bradycardia and was seen in consultation by Dr. Oro of family medicine and Dr. Maier of cardiology. They held his beta-enrique. He underwent evaluation they felt he was safe to back to the operating suite. On November 30 he was taken operating suite by podiatry where he underwent debridement of the wound again and placement of a skin graft with wound VAC placement . It should be noted that he has had positive blood cultures for coagulase-negative Staphylococcus and wound cultures for MRSA. He was seen in consultation via telemedicine by infectious disease. Currently is doing well. He will be discharged home with wound VAC in place which will be changed in the office on Thursday. Fracture disease recommends Septra DS 1 twice daily for 5 weeks. He will see me in follow-up in 1 to 2 weeks. He also have regular follow-up with podiatry service. Podiatry service will provide what ever pain medicine he might require. Vital Signs: Vital Signs (72 hours) 11/29/24 03:33 11/29/24 07:00 11/29/24 08:00 Temperature 98.0 F 97.8 F Pulse Rate Pulse Rate [Left Brachial] 78 79 Respiratory Rate 19 19 Blood Pressure Blood Pressure [Right Arm] 143/76 151/76 O2 Sat by Pulse Oximetry 96 99 Oxygen Delivery Method Room Air Room Air Room Air 11/29/24 08:11 11/29/24 09:33 11/29/24 12:00 Temperature 97.6 F 98.2 F Pulse Rate 80 Pulse Rate [Left Brachial] 83 Respiratory Rate 19 19 Blood Pressure 159/80 Blood Pressure [Right Arm] 147/76 O2 Sat by Pulse Oximetry 98 98 Oxygen Delivery Method Room Air Room Air 11/29/24 15:48 11/29/24 16:00 11/29/24 19:00 Temperature 98.2 F 97.9 F Pulse Rate 83 Pulse Rate [Left Brachial] 81 Respiratory Rate 19 20 Blood Pressure 147/76 Blood Pressure [Right Arm] 111/78 O2 Sat by Pulse Oximetry 98 100 Oxygen Delivery Method Room Air Room Air 11/29/24 20:00 11/29/24 23:42 11/30/24 03:43 Temperature 98.1 F 98.1 F 98.0 F Pulse Rate Pulse Rate [Left Brachial] 79 80 74 Respiratory Rate 19 19 19 Blood Pressure Blood Pressure [Right Arm] 126/85 129/75 131/81 O2 Sat by Pulse Oximetry 97 96 97 Oxygen Delivery Method Room Air Room Air Room Air 11/30/24 07:00 11/30/24 07:41 11/30/24 08:05 Temperature 97.5 F L Pulse Rate Pulse Rate [Left Brachial] 77 Respiratory Rate 17 Blood Pressure Blood Pressure [Right Arm] 135/73 O2 Sat by Pulse Oximetry 97 Oxygen Delivery Method Room Air Room Air Room Air 11/30/24 12:43 11/30/24 12:45 11/30/24 13:00 Temperature 97.5 F L 97.0 F L 96.9 F L Pulse Rate 77 Pulse Rate [Left Brachial] 91 H 91 H Respiratory Rate 17 18 18 Blood Pressure 135/73 Blood Pressure [Right Arm] 120/72 109/63 O2 Sat by Pulse Oximetry 97 98 99 Oxygen Delivery Method Room Air Room Air 11/30/24 13:15 11/30/24 13:30 11/30/24 13:45 Temperature 97.3 F L 97.0 F L 96.2 F L Pulse Rate Pulse Rate [Left Brachial] 86 89 89 Respiratory Rate 18 18 20 Blood Pressure Blood Pressure [Right Arm] 105/63 108/65 113/70 O2 Sat by Pulse Oximetry 100 100 100 Oxygen Delivery Method Room Air Room Air Room Air 11/30/24 14:00 11/30/24 15:00 11/30/24 15:48 Temperature 96.1 F L 96.1 F L 98.0 F Pulse Rate Pulse Rate [Left Brachial] 87 69 65 Respiratory Rate 20 20 18 Blood Pressure Blood Pressure [Right Arm] 115/77 104/73 114/68 O2 Sat by Pulse Oximetry 100 99 99 Oxygen Delivery Method Room Air Room Air Room Air 11/30/24 15:50 11/30/24 17:00 11/30/24 19:00 Temperature 98.0 F 98.0 F Pulse Rate Pulse Rate [Left Brachial] 65 63 Respiratory Rate 18 18 Blood Pressure Blood Pressure [Right Arm] 114/68 108/74 O2 Sat by Pulse Oximetry 99 100 Oxygen Delivery Method Room Air Room Air Room Air 11/30/24 19:58 11/30/24 21:20 12/01/24 00:00 Temperature 97.1 F L 97.5 F L Pulse Rate Pulse Rate [Left Brachial] 69 73 Respiratory Rate 17 19 Blood Pressure Blood Pressure [Right Arm] 137/69 124/63 O2 Sat by Pulse Oximetry 100 100 Oxygen Delivery Method Room Air Room Air Room Air 12/01/24 04:00 12/01/24 07:00 12/01/24 08:00 Temperature 97.7 F 97.7 F Pulse Rate Pulse Rate [Left Brachial] 73 53 L Respiratory Rate 18 19 Blood Pressure Blood Pressure [Right Arm] 111/59 117/65 O2 Sat by Pulse Oximetry 100 100 Oxygen Delivery Method Room Air Room Air Room Air 12/01/24 08:30 12/01/24 11:35 Temperature 96.8 F L Pulse Rate Pulse Rate [Left Brachial] 51 L Respiratory Rate 18 Blood Pressure Blood Pressure [Right Arm] 120/58 O2 Sat by Pulse Oximetry 97 Oxygen Delivery Method Room Air Room Air Labs: Laboratory Last Values WBC 9.8 X10^3/uL (3.6-10.0) 12/01/24 05:24 RBC 3.76 X10^6/uL (4.7-6.0) L 12/01/24 05:24 Hgb 10.3 g/dL (13.5-18.0) L 12/01/24 05:24 Hct 30.1 % (42.0-54.0) L 12/01/24 05:24 MCV 80.3 fL (80.0-100.0) 12/01/24 05:24 MCH 27.4 pg (27.0-34.0) 12/01/24 05:24 MCHC 34.1 g/dL (33.0-35.0) 12/01/24 05:24 RDW 17.2 % (11.6-16.5) H 12/01/24 05:24 Plt Count 157 X10^3/uL (150.0-450.0) 12/01/24 05:24 Plt Count Comment Cancelled 11/23/24 05:32 MPV 10.9 fL (7.4-11.0) 12/01/24 05:24 Neut % (Auto) 80.2 % (42.0-75.0) H 12/01/24 05:24 Lymph % (Auto) 15.8 % (21.0-51.0) L 12/01/24 05:24 [place] % (Auto) 3.4 % (0.0-13.0) 12/01/24 05:24 Eos % (Auto) 0.3 % (0.9-2.9) L 12/01/24 05:24 Baso % (Auto) 0.3 % (0.2-1.0) 12/01/24 05:24 Neut # (Auto) 7.8 x10^3/uL (2.2-4.8) H 12/01/24 05:24 Lymph # (Auto) 1.5 X10^3/uL (1.3-2.9) 12/01/24 05:24 [place] # (Auto) 0.3 x10^3/uL (0.3-0.8) 12/01/24 05:24 Eos # (Auto) 0.0 x10^3/uL (0.0-0.2) 12/01/24 05:24 Baso # (Auto) 0.0 X10^3/uL (0.0-0.1) 12/01/24 05:24 Absolute Nucleated RBC 0.0 /100WBC 12/01/24 05:24 Total Counted 100 11/21/24 09:10 Neutrophils % (Manual) 82 % (39-76) H 11/21/24 09:10 Band Neutrophils % 11 % (0-10) H 11/21/24 09:10 Lymphocytes % (Manual) 4 % (13-43) L 11/21/24 09:10 Monocytes % (Manual) 3 % (4-9) L 11/21/24 09:10 Nucleated RBCs Cancelled 11/23/24 05:32 Atypical Lymphocytes Cancelled 11/23/24 05:32 Blast Cells Cancelled 11/23/24 05:32 Smudge Cells Cancelled 11/23/24 05:32 Toxic Granulation Cancelled 11/23/24 05:32 Dohle Bodies Cancelled 11/23/24 05:32 Samreen Rods Cancelled 11/23/24 05:32 Plt Clumps, EDTA Cancelled 11/23/24 05:32 Giant Platelets Cancelled 11/23/24 05:32 Plt Morphology Comment Cancelled 11/23/24 05:32 RBC Morphology Cancelled 11/23/24 05:32 Dimorphic RBCs Cancelled 11/23/24 05:32 Polychromasia Cancelled 11/23/24 05:32 Hypochromasia Cancelled 11/23/24 05:32 Poikilocytosis Cancelled 11/23/24 05:32 Basophilic Stippling Cancelled 11/23/24 05:32 Anisocytosis Cancelled 11/23/24 05:32 Microcytosis Cancelled 11/23/24 05:32 Macrocytosis Cancelled 11/23/24 05:32 Spherocytes Cancelled 11/23/24 05:32 Pappenheimer Bodies Cancelled 11/23/24 05:32 Sickle Cells Cancelled 11/23/24 05:32 Target Cells Cancelled 11/23/24 05:32 Tear Drop Cells Cancelled 11/23/24 05:32 Ovalocytes Cancelled 11/23/24 05:32 Stomatocytes Cancelled 11/23/24 05:32 Helmet Cells Cancelled 11/23/24 05:32 [place] Bodies Cancelled 11/23/24 05:32 [place] Rings Cancelled 11/23/24 05:32 [place] Cells Cancelled 11/23/24 05:32 Crenated Cell Cancelled 11/23/24 05:32 Acanthocytes (Spur) Cancelled 11/23/24 05:32 Rouleaux Cancelled 11/23/24 05:32 Schistocytes Cancelled 11/23/24 05:32 Sodium 134 mmol/L (136-145) L 12/01/24 05:24 Corrected Sodium 135 mmol/L (136-145) L 12/01/24 05:24 Potassium 5.3 mmol/L (3.5-5.1) H 12/01/24 05:24 Chloride 101 mmol/L (98-107) 12/01/24 05:24 Carbon Dioxide 23.6 mmol/L (21-32) 12/01/24 05:24 BUN 13 mg/dL (7-18) 12/01/24 05:24 Creatinine 1.28 mg/dL (0.70-1.30) 12/01/24 05:24 Est GFR (MDRD) Af Amer > 60 (>60) 12/01/24 05:24 Est GFR (MDRD) Non-Af 58 (>60) L 12/01/24 05:24 Glucose 128 mg/dL (65-99) H 12/01/24 05:24 POC Glucose (mg/dL) 137 mg/dL (65-99) H 12/01/24 11:17 Lactic Acid 1.7 mmol/L (0.4-2.0) 11/21/24 23:32 Calcium 8.4 mg/dL (8.5-10.1) L 12/01/24 05:24 Corrected Calcium 9.9 mg/dL (8.5-10.1) 12/01/24 05:24 Magnesium 1.9 mg/dL (2.0-2.9) L 12/01/24 05:24 Total Bilirubin 0.30 mg/dL (0.2-1.0) 12/01/24 05:24 AST 13 Units/L (15-37) L 12/01/24 05:24 ALT 12 Units/L (12-78) 12/01/24 05:24 Alkaline Phosphatase 97 Units/L (46-116) 12/01/24 05:24 Troponin I High Sens 48.4 ng/L (4.0-60.0) 11/28/24 03:10 Total Protein 7.7 g/dL (6.4-8.2) 12/01/24 05:24 Albumin 2.1 g/dL (3.4-5.0) L 12/01/24 05:24 Globulin 5.6 g/dL (2.5-4.5) H 12/01/24 05:24 Albumin/Globulin Ratio 0.4 Ratio (1.1-2.1) L 12/01/24 05:24 Vancomycin Trough 18.2 ug/mL (15-20) 11/29/24 07:30 Blood Type B POSITIVE 11/22/24 05:30 Antibody Screen Negative 11/22/24 05:30 Crossmatch See Detail 11/22/24 05:30 Reason For Visit: ISCHEMIC LEFT LEG,CELLULITIS LEFT LEG, HYPOKALEMIA Discharge Date Discharge Date: 12/01/24 Discharge Diagnosis All Active Problems (Updated 11/28/24 @ 11:34 by DARRIUS MAIER MD) Preop cardiovascular exam (Acute) Sinus bradycardia (Acute) Necrotizing fasciitis (Acute) Cellulitis of left foot (Acute) Sepsis associated hypotension (Acute) History of CVA (cerebrovascular accident) (Acute) Chronic ischemic heart disease, unspecified (Acute) Essential (primary) hypertension (Acute) Type 2 diabetes mellitus without complications (Acute) Atherosclerosis of [place] arteries of extremities with rest pain, left leg (Acute) Atherosclerosis of [place] arteries of extremities with rest pain, right leg (Acute) Plan of Treatment: Continue with present treatment and follow up plan. Pt is to keep follow up appointment as instructed and take medications as ordered. Discharge Medications Discharge Medications: No Known Allergies Allergy (Verified 11/21/24 09:09) CONTINUE taking the following medications potassium chloride 20 mEq tablet,extended release 20 meq PO BID 11/21/24 [History] New Prescriptions sulfamethoxazole 800 mg-trimethoprim 160 mg tablet (Bactrim DS) 1 tab PO BID #56 tabs 12/01/24 [Rx] Discharge Plan Discharge Plan Hospital Course: This a 74-year-old male with prior history of arterial intervention of the right leg and subsequent right transmetatarsal amputation which healed. Patient presented now with a necrotic wound over the dorsum of the left foot with evidence of arterial insufficiency documented by CT angiogram. Patient was admitted on November 21. He underwent debridement of the wound to the dorsum of the foot by the podiatry service on November 23. On November 24 I took him to the OR and performed angioplasty left posterior tibial and left peroneal arteries as well as drug-coated balloon angioplasty left popliteal artery. The podiatry had placed antibiotic beads over the wound. and planned return to the OR. Patient had episodes of bradycardia and was seen in consultation by Dr. Oro of family medicine and Dr. Maier of cardiology. They held his beta-enrique. He underwent evaluation they felt he was safe to back to the operating suite. On November 30 he was taken operating suite by podiatry where he underwent debridement of the wound again and placement of a skin graft with wound VAC placement . It should be noted that he has had positive blood cultures for coagulase-negative Staphylococcus and wound cultures for MRSA. He was seen in consultation via telemedicine by infectious disease. Currently is doing well. He will be discharged home with wound VAC in place which will be changed in the office on Thursday. Fracture disease recommends Septra DS 1 twice daily for 5 weeks. He will see me in follow-up in 1 to 2 weeks. He also have regular follow-up with podiatry service. Podiatry service will provide what ever pain medicine he might require. Patient Disposition: HOME HEALTH SERVICE Condition: Stable Health Concerns: Post Hospitalization: new medications and changes needed to prevent readmission or further decline. Pt educated and given instructions on all concerns. Care Plan Goals: Problem: Pain/Alteration in Comfort Goal: Improve/ Resolve Pain; Achieve Pain Tolerance Instructions: Take pain medications as prescribed. Contact your primary care provider if your pain is unrelieved or worsens. Follow up with primary care provider as directed. Plan of Treatment: Continue with present treatment and follow up plan. Pt is to keep follow up appointment as instructed and take medications as ordered. Prescriptions: New sulfamethoxazole-trimethoprim [Bactrim DS] 800-160 mg Tablet 1 tab PO BID Qty: 56 0RF No Action atorvastatin 40 mg Tablet 20 mg PO QHS clopidogrel 75 mg Tablet 75 mg PO QDAY amlodipine 5 mg Tablet 5 mg PO QDAY metformin 1,000 mg Tablet 1,000 mg PO BIDWMEAL lisinopril 40 mg Tablet 20 mg PO QDAY carboxymethylcellulose sodium [Refresh] 1 % Drops, Liquid Gel 4 drp OPHTHALMIC (EYE) BID metoprolol tartrate 25 mg Tablet 25 mg PO BID aspirin 81 mg Tablet,Chewable 81 mg PO QDAY potassium chloride 20 mEq Tablet Extended Release 20 meq PO BID Follow ups/Referrals Follow ups/Referrals: JEFF IRVIN [STAFF PHYSICIAN, Unknown] - 1 WEEK DARRIUS MAIER MD [STAFF PHYSICIAN, Cardiology] - 12/12/24 3:00 pm Venancio Boucher [CONSULTING PHYSICIAN, Unknown] - 12/05/24 2:15 pm Referral Note: notified of labs to be done once a week bmp, cbc, crp Chapito Suárez [STAFF PHYSICIAN, Unknown] - 12/14/24 2:30 pm Instructions Instructions: Bradycardia, Adult, Endovascular Therapy for Peripheral Vascular Disease: What to Know After Stand Alone Forms: Excuse From Work or School, Find Help Web Site, Post Hospital Follow Up Care Print Language: YAKUT
[2024-12-05] MEDS ORDERED: NS IRRIGATION* 500 ML IR ONE (14:00)
== END 2024-12-01 13:35 | disposition home health service (06) | DRG 270 ==
LOC: MED/SURG 08:54 → ER 08:54 → OBSVTOIN 09:59 → MED/SURG 10:37
PROVIDERS: ADMIT Surgery; ATTEND Surgery
PROC: DEBRIDE (2024-11-23 09:30)
PROC: ANGIOGR (2024-11-24 07:45)
DX: Z16.12 Extended spectrum beta lactamase (ESBL) resistance; B95.7 Other staphylococcus as the cause of diseases classified elsewhere; L89.892 Pressure ulcer of other site, stage 2; I25.810 Atherosclerosis of coronary artery bypass graft(s) without angina pectoris; E87.6 Hypokalemia; I10 Essential (primary) hypertension; Z86.73 Personal history of transient ischemic attack (TIA), and cerebral infarction without residual deficits; Z16.19 Resistance to other specified beta lactam antibiotics; R00.1 Bradycardia, unspecified; Z16.11 Resistance to penicillins; R94.31 Abnormal electrocardiogram [ECG] [EKG]; L03.116 Cellulitis of left lower limb; E11.65 Type 2 diabetes mellitus with hyperglycemia; L89.152 Pressure ulcer of sacral region, stage 2; B95.62 Methicillin resistant Staphylococcus aureus infection as the cause of diseases classified elsewhere; R79.89 Other specified abnormal findings of blood chemistry; E78.2 Mixed hyperlipidemia; I96 Gangrene, not elsewhere classified; M72.6 Necrotizing fasciitis; I70.222 Atherosclerosis of native arteries of extremities with rest pain, left leg; Z16.29 Resistance to other single specified antibiotic; Z01.810 Encounter for preprocedural cardiovascular examination; I45.19 Other right bundle-branch block; E83.42 Hypomagnesemia; Z16.23 Resistance to quinolones and fluoroquinolones